=== PATIENT | female | born 1965 | race Caucasian/White ===

== ENCOUNTER 2017-05-29 14:41 | Inpatient (IN) | payer BC ==
[2017-05-29 15:24] VITALS: BMI 30.9
--- NOTE | 2017-05-29 17:54 | CP.PCM.HP ---
History of Present Illness - History of Present Illness History of Present Illness: 51 yo female with history of HTN and HDL, non-compliant with medications for 6 months, woke up around 1am on 05/24/17. She was about to go to the bathroom but her left leg gave in and she fell down. She went back to bed and felt mild headache accompanied with dizziness. She also noticed numbness and weakness of her left arm. She attempted getting up from bed again and fell down a second time because of weakness on her left leg. When day broke, she bought herself a cane to assist her in ambulation. Later in the day she decided to [place] [facility] [place]. MRI was done which showed acute infarct in the right mar radiata and basal ganglia. She was admitted and managed as Acute CVA. Present on Admission - Present on Admission Any Indicators Present on Admission: No History of DVT/PE: No History of Uncontrolled Diabetes: No Urinary Catheter: No Decubitus Ulcer Present: No Review of Systems - Review of Systems All systems: reviewed and no additional remarkable complaints except (aside from those mentioned above, 12 point system review were negative by me) Past Patient History - Infectious Disease Hx of Infectious Diseases: None - Tetanus Immunizations Tetanus Immunization: Unknown - Past Medical History & Family History Past Medical History?: Yes Pertinent Family History: father has history of HTN - Past Social History Smoking Status: Never Smoked Alcohol: None Drugs: Denies Home Situation {Lives}: Alone - CARDIAC Hx Hypercholesterolemia: Yes Hx Hypertension: Yes - PULMONARY Hx Respiratory Disorders: No - NEUROLOGICAL Hx Neurological Disorder: No - HEENT Hx HEENT Problems: No - RENAL Hx Chronic Kidney Disease: No - ENDOCRINE/METABOLIC Hx Endocrine Disorders: No - HEMATOLOGICAL/ONCOLOGICAL Hx Anemia: Yes - INTEGUMENTARY Hx Dermatological Problems: No - MUSCULOSKELETAL/RHEUMATOLOGICAL Hx Musculoskeletal Disorders: No - GASTROINTESTINAL Hx Gastrointestinal Disorders: No - GENITOURINARY/GYNECOLOGICAL Hx Genitourinary Disorders: No - PSYCHIATRIC Hx Psychophysiologic Disorder: No - SURGICAL HISTORY Hx Surgeries: No - ANESTHESIA Hx Anesthesia: No Meds Allergies/Adverse Reactions: Allergies Allergy/AdvReac Type Severity Reaction Status Date / Time No Known Allergies Allergy Verified 05/29/17 17:03 Physical Exam - Constitutional Appears: No Acute Distress, Other (obese) - Head Exam Head Exam: ATRAUMATIC - Eye Exam Eye Exam: PERRL. absent: Scleral icterus - ENT Exam ENT Exam: Mucous Membranes Moist - Neck Exam Neck exam: Negative for: Meningismus - Respiratory Exam Respiratory Exam: absent: Rhonchi, Wheezes, Respiratory Distress - Cardiovascular Exam Cardiovascular Exam: REGULAR RHYTHM, +S1, +S2 - GI/Abdominal Exam GI & Abdominal Exam: Soft. absent: Tenderness - Rectal Exam Rectal Exam: Deferred - Extremities Exam Extremities exam: Negative for: calf tenderness, pedal edema - Neurological Exam Neurological exam: Alert, Oriented x3 - Psychiatric Exam Psychiatric exam: Normal Affect - Skin Skin Exam: Dry, Intact Assessment & Plan - Assessment and Plan (Free Text) Assessment: 51 yo female with history of HTN and HDL, non-compliant with medications for 6 months, woke up around 1am on 05/24/17 with left sided weakness causing her to fall twice. [place] [facility] [place] was found to have acute CVA when MRI showed acute infarct in the right mar radiata and basal ganglia. 1. Acute CVA admit to Acute Rehab for continuation of PT/OT physiatry consult with Dr Freeman continue ASA, statin and BP management fall precaution 2. HTN BP stable continue HCTZ 12.5 mg PO daily 3. HLD Atorvastatin 40mg PO HS
[2017-05-29] MEDS ORDERED: Influenza Vaccine 18yr & older 0.5 ML/45 MCG SYR IM ONE (18:38)
[2017-05-29] MEDS ORDERED: Pneumococcal 23-Valent Vaccine IM ONE (18:38)
[2017-05-30 07:44] LABS: HEMOGLOBIN 12.1 g/dL (12.0-16.0); MEAN CELL VOLUME 82.2 fl (81.0-99.0); MEAN CORPUSCULAR HGB CONC 32.8 g/dL (33.0-37.0); RBC 4.5 Mil/uL (3.80-5.20); RED CELL DISTRIBUTION WIDTH 16.4 % (11.5-14.5); WHITE BLOOD COUNT 4.1 K/uL (4.8-10.8)
[2017-05-30 07:46] LABS: ALB/GLOB RATIO 1.1 (1.0-2.1); ALBUMIN 3.7 g/dL (3.5-5.0); ALT/SGPT 80 U/L (9-52); AST/SGOT 40 U/L (14-36); BLOOD UREA NITROGEN 18 mg/dl (7-17); CALCIUM 9.2 mg/dL (8.4-10.2); GFR AFRICAN-AMERICAN > 60; GFR NON-AFRICAN AMERICAN > 60
[2017-05-30] MEDS: NIFEdipine 60 mg ER Tab PO SCH (08:41)
[2017-05-30] MEDS: Enoxaparin 40 mg Syringe SC SCH (12:24)
--- NOTE | 2017-05-30 13:38 | CP.PCM.PN ---
Subjective - Date & Time of Evaluation Date of Evaluation: 05/30/17 Time of Evaluation: 11:40 - Subjective Subjective: paatinet with left sided weakness Objective - Vital Signs/Intake and Output Vital Signs (last 24 hours): Temp Pulse Resp BP Pulse Ox 97.7 F 87 18 130/92 H 98 05/30/17 08:03 05/30/17 11:08 05/30/17 08:03 05/30/17 08:42 05/30/17 11:08 - Medications Medications: Current Medications Aspirin (Ecotrin) 81 mg PO DAILY [facility] Last Admin: 05/30/17 08:41 Dose: 81 mg Atorvastatin Calcium (Lipitor) 40 mg PO DAILY [facility] Last Admin: 05/30/17 08:41 Dose: 40 mg Enoxaparin Sodium (Lovenox) 40 mg SC DAILY [facility] PRN Reason: Protocol Last Admin: 05/30/17 12:24 Dose: 40 mg Hydrochlorothiazide (Microzide) 12.5 mg PO DAILY [facility] Last Admin: 05/30/17 08:41 Dose: 12.5 mg Lisinopril (Zestril) 5 mg PO DAILY [facility] Last Admin: 05/30/17 08:42 Dose: 5 mg Nifedipine (Procardia Xl) 60 mg PO DAILY [facility] Last Admin: 05/30/17 08:41 Dose: 60 mg Pantoprazole Sodium (Protonix Ec Tab) 40 mg PO DAILY [facility] - Labs Labs: 05/30/17 06:15 05/30/17 06:15 - Head Exam Head Exam: ATRAUMATIC, NORMAL INSPECTION, NORMOCEPHALIC - Eye Exam Eye Exam: EOMI, Normal appearance, PERRL Pupil Exam: NORMAL ACCOMODATION - ENT Exam ENT Exam: Mucous Membranes Moist, Normal Exam - Neck Exam Neck Exam: Normal Inspection - Respiratory Exam Respiratory Exam: NORMAL BREATHING PATTERN - Cardiovascular Exam Cardiovascular Exam: REGULAR RHYTHM - GI/Abdominal Exam GI & Abdominal Exam: Soft, Normal Bowel Sounds - Rectal Exam Rectal Exam: NORMAL INSPECTION - Exam External exam: NORMAL EXTERNAL EXAM - Extremities Exam Extremities Exam: Full ROM, Normal Capillary Refill - Back Exam Back Exam: NORMAL INSPECTION - Neurological Exam Neurological Exam: Alert, Awake Neuro motor strength exam: Left Upper Extremity: 2/1, Right Upper Extremity: 3, Left Lower Extremity: 2/1, Right Lower Extremity: 3 - Psychiatric Exam Psychiatric exam: Normal Affect, Normal Mood - Skin Skin Exam: Dry, Intact Assessment and Plan (1) CVA (cerebral vascular accident) Assessment & Plan: plan for pt, ot, rec and speech therapy Status: Acute
--- NOTE | 2017-05-30 13:39 | PCM.OPOC ---
Physiatry Overall Plan of Care - Overall Plan of Care Estimated Length of Stay in Weeks: 3 Rehab Impairment: Mobility, Gait, Cognition, Balance, Coordination Etiologic Diagnosis: Cerebrovascular Accident - Anticipated Interventions Physical Therapy:: Yes Occupational Therapy:: Yes Speech Therapy:: Yes Recreational Therapy:: Yes - Therapy Goals Bed Mobility: Independent Ambulation: Independent Functional Positional Changes:: Independent - Functional Outcomes Functional Outcomes: fair - Discharge Plan Identification of Barriers to Discharge: Home Situation Discharge Destination: Home
--- NOTE | 2017-05-30 13:41 | CP.PCM.CON ---
History of Present Illness - History of Present Illness History of Present Illness: 51 yearl old freindly female admiited to acute rehab with diagnosis of Cva Review of Systems - Musculoskeletal Musculoskeletal: Abnormal Gait, Limited Range of Motion - Neurological Neurological: Abnormal Gait, Weakness Past Patient History - Infectious Disease Hx of Infectious Diseases: None - Tetanus Immunizations Tetanus Immunization: Unknown - Past Medical History & Family History Past Medical History?: Yes - Past Social History Smoking Status: Never Smoked Alcohol: None Drugs: Denies Home Situation {Lives}: Alone - CARDIAC Hx Hypercholesterolemia: Yes Hx Hypertension: Yes - PULMONARY Hx Respiratory Disorders: No - NEUROLOGICAL Hx Neurological Disorder: No - HEENT Hx HEENT Problems: No - RENAL Hx Chronic Kidney Disease: No - ENDOCRINE/METABOLIC Hx Endocrine Disorders: No - HEMATOLOGICAL/ONCOLOGICAL Hx AIDS: No Hx Human Immunodeficiency Virus (HIV): No - INTEGUMENTARY Hx Dermatological Problems: No - MUSCULOSKELETAL/RHEUMATOLOGICAL Hx Musculoskeletal Disorders: No - GASTROINTESTINAL Hx Gastrointestinal Disorders: No - GENITOURINARY/GYNECOLOGICAL Hx Genitourinary Disorders: No - PSYCHIATRIC Hx Psychophysiologic Disorder: No - SURGICAL HISTORY Hx Surgeries: No - ANESTHESIA Hx Anesthesia: No Meds Allergies/Adverse Reactions: Allergies Allergy/AdvReac Type Severity Reaction Status Date / Time No Known Allergies Allergy Verified 05/29/17 17:03 - Medications Medications: Current Medications Aspirin (Ecotrin) 81 mg PO DAILY [facility] Last Admin: 05/30/17 08:41 Dose: 81 mg Atorvastatin Calcium (Lipitor) 40 mg PO DAILY [facility] Last Admin: 05/30/17 08:41 Dose: 40 mg Enoxaparin Sodium (Lovenox) 40 mg SC DAILY [facility] PRN Reason: Protocol Last Admin: 05/30/17 12:24 Dose: 40 mg Hydrochlorothiazide (Microzide) 12.5 mg PO DAILY [facility] Last Admin: 05/30/17 08:41 Dose: 12.5 mg Lisinopril (Zestril) 5 mg PO DAILY [facility] Last Admin: 05/30/17 08:42 Dose: 5 mg Nifedipine (Procardia Xl) 60 mg PO DAILY [facility] Last Admin: 05/30/17 08:41 Dose: 60 mg Pantoprazole Sodium (Protonix Ec Tab) 40 mg PO DAILY [facility] Physical Exam - Head Exam Head Exam: ATRAUMATIC, NORMAL INSPECTION, NORMOCEPHALIC - Eye Exam Eye Exam: EOMI, Normal appearance, PERRL - ENT Exam ENT Exam: Mucous Membranes Moist, Normal Exam - Neck Exam Neck exam: Positive for: Normal Inspection - Respiratory Exam Respiratory Exam: NORMAL BREATHING PATTERN - Cardiovascular Exam Cardiovascular Exam: REGULAR RHYTHM - GI/Abdominal Exam GI & Abdominal Exam: Normal Bowel Sounds - Rectal Exam Rectal Exam: NORMAL INSPECTION - Exam External exam: NORMAL EXTERNAL EXAM - Extremities Exam Extremities exam: Positive for: normal inspection - Back Exam Back exam: NORMAL INSPECTION - Neurological Exam Neurological exam: Alert, CN II-XII Intact Additional comments: left sided weakness - Psychiatric Exam Psychiatric exam: Normal Affect, Normal Mood - Skin Skin Exam: Dry, Intact Results - Vital Signs Recent Vital Signs: Last Vital Signs Temp 97.7 F 05/30/17 08:03 Pulse 87 05/30/17 11:08 Resp 18 05/30/17 08:03 BP 130/92 H 05/30/17 08:42 Pulse Ox 98 05/30/17 11:08 - Labs Result Diagrams: 05/30/17 06:15 05/30/17 06:15 Labs: Laboratory Results - last 24 hr 05/30/17 05/30/17 06:15 06:15 WBC 4.1 L RBC 4.50 Hgb 12.1 Hct 36.9 MCV 82.2 MCH 27.0 MCHC 32.8 L RDW 16.4 H Plt Count 190 Sodium 138 Potassium 3.7 Chloride 100 Carbon Dioxide 28 Anion Gap 14 BUN 18 H Creatinine 0.9 Est GFR ( Amer) > 60 Est GFR (Non-Af Amer) > 60 Random Glucose 113 H Calcium 9.2 Total Bilirubin 0.7 AST 40 H ALT 80 H Alkaline Phosphatase 40 Total Protein 7.0 Albumin 3.7 Globulin 3.3 Albumin/Globulin Ratio 1.1 Assessment & Plan (1) CVA (cerebral vascular accident) Assessment and Plan: plan for physical, occupational, rec and speech therapy for range of motion, strenghteninging, transfers and gait training goal for Mod I Status: Acute
--- NOTE | 2017-05-30 17:47 | CP.PCM.PN ---
Subjective - Date & Time of Evaluation Date of Evaluation: 05/30/17 Time of Evaluation: 11:00 - Subjective Subjective: Patient was seen and examined at bedside. Reports no new complaints. She is excited to start physical therapy. C/o constipation. Objective - Vital Signs/Intake and Output Vital Signs (last 24 hours): Temp Pulse Resp BP Pulse Ox 97.7 F 87 18 130/92 H 98 05/30/17 08:03 05/30/17 11:08 05/30/17 08:03 05/30/17 08:42 05/30/17 11:08 - Medications Medications: Current Medications Aspirin (Ecotrin) 81 mg PO DAILY [facility] Last Admin: 05/30/17 08:41 Dose: 81 mg Atorvastatin Calcium (Lipitor) 40 mg PO DAILY [facility] Last Admin: 05/30/17 08:41 Dose: 40 mg Docusate Sodium (Colace) 100 mg PO BID [facility] Last Admin: 05/30/17 17:31 Dose: 100 mg Enoxaparin Sodium (Lovenox) 40 mg SC DAILY [facility] PRN Reason: Protocol Last Admin: 05/30/17 12:24 Dose: 40 mg Hydrochlorothiazide (Microzide) 12.5 mg PO DAILY [facility] Last Admin: 05/30/17 08:41 Dose: 12.5 mg Lisinopril (Zestril) 5 mg PO DAILY [facility] Last Admin: 05/30/17 08:42 Dose: 5 mg Nifedipine (Procardia Xl) 60 mg PO DAILY [facility] Last Admin: 05/30/17 08:41 Dose: 60 mg Pantoprazole Sodium (Protonix Ec Tab) 40 mg PO DAILY [facility] - Labs Labs: 05/30/17 06:15 05/30/17 06:15 - Additional Findings Additional findings: Physical exam: Constitutional- cooperative, awake, alert Head- NCAT, PERRL Eye- PERRL, EOMI ENT- normal exam, MMM. Neck- normal inspection, supple, no JVD Respiratory- CTAB, no wheezes rales rhonchi Cardiovascular- RRR, +S1, +S2 no MRG GI/Abdominal- normal bowel sounds, soft, no mass, no hsm Skin- warm, dry Extremities Exam- normal capillary refill, normal inspection Neurological Exam- alert, awake, oriented Psych- normal mood, normal affect Assessment and Plan - Assessment and Plan (Free Text) Plan: 51 yo female with history of HTN and HDL, non-compliant with medications for 6 months, woke up around 1am on 05/24/17. She was about to go to the bathroom but her left leg gave in and she fell down. She went back to bed and felt mild headache accompanied with dizziness. She also noticed numbness and weakness of her left arm. She attempted getting up from bed again and fell down a second time because of weakness on her left leg. The next day, she bought herself a cane to assist her in ambulation. Later in the day she decided to check in to [facility] [place] when her condition did not improve. MRI was done which showed acute infarct in the right mar radiata and basal ganglia. She was admitted and managed as Acute CVA. She reports during her stay there she was told she had low potassium and low magnesium and recieved repletion of these intravenously. She was subsequently admitted to [facility] acute rehab on 05/29/2016 for further rehabillitation 1. Acute CVA admit to Acute Rehab for continuation of PT/OT physiatry consult with Dr Freeman continue ASA, statin and BP management fall precaution Herat healthy diet 2. HTN BP stable continue HCTZ 12.5 mg PO daily Nifedipine ER 60 mg po daily Lisinopril 5 mg po daily 3. HLD Atorvastatin 40mg PO HS 4. Constipation - Colace 100 mg po BID added 5. GERD prophylaxis Protonix 40 mg po daily 6. DVT prophylaxis Lovenox
[2017-05-31] MEDS: Enoxaparin 40 mg Syringe SC SCH (08:34)
[2017-05-31] MEDS: Pantoprazole 40 mg EC Tab PO SCH (08:34)
[2017-05-31] MEDS: NIFEdipine 60 mg ER Tab PO SCH (08:35)
[2017-06-01] MEDS: Cholecalciferol 1,000 INTLU TAB PO SCH (08:35)
[2017-06-01] MEDS: NIFEdipine 60 mg ER Tab PO SCH (08:36)
[2017-06-01] MEDS: Pantoprazole 40 mg EC Tab PO SCH (08:36)
[2017-06-01] MEDS: Enoxaparin 40 mg Syringe SC SCH (08:37)
[2017-06-01] MEDS ORDERED: Pantoprazole 40 mg EC Tab PO ONE (10:48)
[2017-06-01] MEDS ORDERED: NIFEdipine 60 mg ER Tab PO ONE (10:48)
[2017-06-01] MEDS ORDERED: Cholecalciferol 1,000 INTLU TAB PO ONE (10:49)
[2017-06-02 06:08] LABS: HEMOGLOBIN 12.2 g/dL (12.0-16.0); MEAN CELL VOLUME 81.9 fl (81.0-99.0); MEAN CORPUSCULAR HEMOGLOBIN 26.6 pg (27.0-31.0); MEAN CORPUSCULAR HGB CONC 32.5 g/dL (33.0-37.0); RBC 4.57 Mil/uL (3.80-5.20); RED CELL DISTRIBUTION WIDTH 16.8 % (11.5-14.5); WHITE BLOOD COUNT 4.4 K/uL (4.8-10.8)
[2017-06-02 06:21] LABS: BLOOD UREA NITROGEN 19 mg/dl (7-17); CALCIUM 9.2 mg/dL (8.4-10.2); GFR AFRICAN-AMERICAN > 60; GFR NON-AFRICAN AMERICAN > 60
[2017-06-02] MEDS: Enoxaparin 40 mg Syringe SC SCH (08:34)
[2017-06-02] MEDS: NIFEdipine 60 mg ER Tab PO SCH (08:34)
[2017-06-02] MEDS: Pantoprazole 40 mg EC Tab PO SCH (08:34)
[2017-06-02] MEDS: Cholecalciferol 1,000 INTLU TAB PO SCH (08:35)
[2017-06-02] MEDS ORDERED: Pantoprazole 40 mg EC Tab PO ONE (10:48)
[2017-06-02] MEDS ORDERED: Cholecalciferol 1,000 INTLU TAB PO ONE (10:49)
--- NOTE | 2017-06-02 18:41 | CP.PCM.PN ---
Subjective - Date & Time of Evaluation Date of Evaluation: 06/02/17 Time of Evaluation: 15:45 - Subjective Subjective: Pt seen and examined. Complained of coughing and feeling of sticky phlegm in her throat. Denied SOB. Objective - Vital Signs/Intake and Output Vital Signs (last 24 hours): Temp Pulse Resp BP Pulse Ox 98.5 F 86 20 124/79 97 06/02/17 08:40 06/02/17 08:40 06/02/17 08:40 06/02/17 08:40 06/02/17 08:40 - Medications Medications: Current Medications Acetylcysteine (Acetylcysteine 20%) 2 ml INH RBID [facility] Aspirin (Ecotrin) 81 mg PO DAILY [facility] Last Admin: 06/02/17 08:34 Dose: 81 mg Atorvastatin Calcium (Lipitor) 40 mg PO DAILY@2100 [facility] Benzonatate (Tessalon Perles) 200 mg PO TID PRN PRN Reason: Cough Last Admin: 06/01/17 16:43 Dose: 200 mg Cholecalciferol (Vitamin D) 1,000 intlu PO DAILY [facility] Last Admin: 06/02/17 08:35 Dose: 1,000 intlu Docusate Sodium (Colace) 100 mg PO BID [facility] Last Admin: 06/02/17 17:26 Dose: 100 mg Enoxaparin Sodium (Lovenox) 40 mg SC DAILY [facility] PRN Reason: Protocol Last Admin: 06/02/17 08:34 Dose: 40 mg Hydrochlorothiazide (Microzide) 12.5 mg PO DAILY [facility] Last Admin: 06/02/17 08:34 Dose: 12.5 mg Loratadine (Claritin) 10 mg PO DAILY PRN PRN Reason: Allergy symptoms Last Admin: 06/02/17 08:36 Dose: 10 mg Nifedipine (Procardia Xl) 60 mg PO DAILY [facility] Last Admin: 06/02/17 08:34 Dose: 60 mg Pantoprazole Sodium (Protonix Ec Tab) 40 mg PO DAILY [facility] Last Admin: 06/02/17 08:34 Dose: 40 mg - Labs Labs: 06/02/17 05:35 06/02/17 05:35 - Constitutional Appears: No Acute Distress - Head Exam Head Exam: ATRAUMATIC - Eye Exam Eye Exam: absent: Scleral icterus - ENT Exam ENT Exam: Mucous Membranes Moist - Neck Exam Neck Exam: absent: Meningismus - Respiratory Exam Respiratory Exam: absent: Rhonchi, Wheezes, Respiratory Distress - Cardiovascular Exam Cardiovascular Exam: REGULAR RHYTHM, +S1, +S2 - GI/Abdominal Exam GI & Abdominal Exam: Soft. absent: Tenderness - Rectal Exam Rectal Exam: Deferred - Extremities Exam Extremities Exam: absent: Calf Tenderness - Neurological Exam Neurological Exam: Alert, Oriented x3 - Psychiatric Exam Psychiatric exam: Normal Affect - Skin Skin Exam: Dry, Intact Assessment and Plan - Assessment and Plan (Free Text) Assessment: 51 yo female with history of HTN and HDL, non-compliant with medications for 6 months, woke up around 1am on 05/24/17 with left sided weakness causing her to fall twice. She went in to [facility] [place] and was found to have acute CVA with MRI showing acute infarct in the right mar radiata and basal ganglia. 1. Acute CVA admit to Acute Rehab for continuation of PT/OT physiatry consult with Dr Freeman continue ASA, statin and BP management fall precaution 2. HTN BP stable continue HCTZ and Nifedipine ER DC Lisinopril because of persistent coughing 3. HLD Atorvastatin 40mg PO HS 4. Coughing probably secondary to post nasal drip Acetylcysteine via nebulizer BID Robitussin DM PO QID 5. DVT prophylaxis continue Lovenox
[2017-06-02] MEDS: Acetylcysteine 20% Inhal Soln (4ml) INH SCH (19:14)
[2017-06-02] MEDS: Albuterol-Ipratrop 3 mg / 0.5 (3 ml) UD INH PRN (19:14)
--- NOTE | 2017-06-02 19:45 | CP.PCM.PN ---
Subjective - Date & Time of Evaluation Date of Evaluation: 05/31/17 Time of Evaluation: 14:30 - Subjective Subjective: no acute complaints of pain Objective - Vital Signs/Intake and Output Vital Signs (last 24 hours): Temp Pulse Resp BP Pulse Ox 98.5 F 80 20 124/79 97 06/02/17 08:40 06/02/17 19:14 06/02/17 08:40 06/02/17 08:40 06/02/17 08:40 - Medications Medications: Current Medications Acetylcysteine (Acetylcysteine 20%) 2 ml INH RBID [facility] Last Admin: 06/02/17 19:14 Dose: 2 ml Albuterol/Ipratropium (Duoneb 3 Mg/0.5 Mg (3 Ml) Ud) 3 ml INH RBID PRN PRN Reason: Shortness of Breath Last Admin: 06/02/17 19:14 Dose: 3 ml Aspirin (Ecotrin) 81 mg PO DAILY [facility] Last Admin: 06/02/17 08:34 Dose: 81 mg Atorvastatin Calcium (Lipitor) 40 mg PO DAILY@2100 [facility] Benzonatate (Tessalon Perles) 200 mg PO TID PRN PRN Reason: Cough Last Admin: 06/01/17 16:43 Dose: 200 mg Cholecalciferol (Vitamin D) 1,000 intlu PO DAILY [facility] Last Admin: 06/02/17 08:35 Dose: 1,000 intlu Docusate Sodium (Colace) 100 mg PO BID [facility] Last Admin: 06/02/17 17:26 Dose: 100 mg Enoxaparin Sodium (Lovenox) 40 mg SC DAILY [facility] PRN Reason: Protocol Last Admin: 06/02/17 08:34 Dose: 40 mg Hydrochlorothiazide (Microzide) 12.5 mg PO DAILY [facility] Last Admin: 06/02/17 08:34 Dose: 12.5 mg Loratadine (Claritin) 10 mg PO DAILY PRN PRN Reason: Allergy symptoms Last Admin: 06/02/17 08:36 Dose: 10 mg Nifedipine (Procardia Xl) 60 mg PO DAILY [facility] Last Admin: 06/02/17 08:34 Dose: 60 mg Pantoprazole Sodium (Protonix Ec Tab) 40 mg PO DAILY [facility] Last Admin: 06/02/17 08:34 Dose: 40 mg - Labs Labs: 06/02/17 05:35 06/02/17 05:35 - Head Exam Head Exam: ATRAUMATIC, NORMAL INSPECTION, NORMOCEPHALIC - Eye Exam Eye Exam: EOMI, Normal appearance Pupil Exam: NORMAL ACCOMODATION, PERRL - ENT Exam ENT Exam: Mucous Membranes Moist, Normal Exam - Neck Exam Neck Exam: Normal Inspection - Respiratory Exam Respiratory Exam: Clear to Ausculation Bilateral - Cardiovascular Exam Cardiovascular Exam: REGULAR RHYTHM - GI/Abdominal Exam GI & Abdominal Exam: Soft, Normal Bowel Sounds - Rectal Exam Rectal Exam: NORMAL INSPECTION - Exam External exam: NORMAL EXTERNAL EXAM - Extremities Exam Extremities Exam: Normal Inspection - Back Exam Back Exam: NORMAL INSPECTION - Neurological Exam Neurological Exam: Alert, Awake Neuro motor strength exam: Left Upper Extremity: 4, Right Upper Extremity: 3, Left Lower Extremity: 4, Right Lower Extremity: 3 - Psychiatric Exam Psychiatric exam: Normal Affect, Normal Mood - Skin Skin Exam: Normal Color Assessment and Plan (1) CVA (cerebral vascular accident) Assessment & Plan: plan to continue with physical, occupational, rec , speech therapy for range of motion, strengthening transfers and gait training Status: Acute
[2017-06-03] MEDS: Enoxaparin 40 mg Syringe SC SCH (08:26)
[2017-06-03] MEDS: NIFEdipine 60 mg ER Tab PO SCH (08:28)
[2017-06-03] MEDS: Pantoprazole 40 mg EC Tab PO SCH (08:29)
[2017-06-03] MEDS: Cholecalciferol 1,000 INTLU TAB PO SCH (08:29)
[2017-06-03] MEDS: Acetylcysteine 20% Inhal Soln (4ml) INH SCH ×3 (08:38→19:13)
[2017-06-03] MEDS: Albuterol-Ipratrop 3 mg / 0.5 (3 ml) UD INH PRN ×2 (11:00→19:13)
--- NOTE | 2017-06-03 12:32 | CP.PCM.PN ---
Subjective - Date & Time of Evaluation Date of Evaluation: 06/03/17 Time of Evaluation: 10:30 - Subjective Subjective: patinet with less cough and congestion Objective - Vital Signs/Intake and Output Vital Signs (last 24 hours): Temp Pulse Resp BP Pulse Ox 98.2 F 99 H 97 H 149/84 97 06/03/17 08:52 06/03/17 10:15 06/03/17 10:15 06/03/17 08:52 06/03/17 08:52 - Medications Medications: Current Medications Acetylcysteine (Acetylcysteine 20%) 2 ml INH RBID [facility] Last Admin: 06/03/17 11:00 Dose: 2 ml Albuterol/Ipratropium (Duoneb 3 Mg/0.5 Mg (3 Ml) Ud) 3 ml INH RBID PRN PRN Reason: Shortness of Breath Last Admin: 06/03/17 11:00 Dose: 3 ml Aspirin (Ecotrin) 81 mg PO DAILY [facility] Last Admin: 06/03/17 08:29 Dose: 81 mg Atorvastatin Calcium (Lipitor) 40 mg PO DAILY@2100 [facility] Last Admin: 06/02/17 20:10 Dose: 40 mg Benzonatate (Tessalon Perles) 200 mg PO TID PRN PRN Reason: Cough Last Admin: 06/02/17 20:08 Dose: 200 mg Cholecalciferol (Vitamin D) 1,000 intlu PO DAILY [facility] Last Admin: 06/03/17 08:29 Dose: 1,000 intlu Docusate Sodium (Colace) 100 mg PO BID [facility] Last Admin: 06/03/17 08:27 Dose: 100 mg Enoxaparin Sodium (Lovenox) 40 mg SC DAILY [facility] PRN Reason: Protocol Last Admin: 06/03/17 08:26 Dose: 40 mg Hydrochlorothiazide (Microzide) 12.5 mg PO DAILY [facility] Last Admin: 06/03/17 08:29 Dose: 12.5 mg Loratadine (Claritin) 10 mg PO DAILY PRN PRN Reason: Allergy symptoms Last Admin: 06/03/17 08:31 Dose: 10 mg Nifedipine (Procardia Xl) 60 mg PO DAILY [facility] Last Admin: 06/03/17 08:28 Dose: 60 mg Pantoprazole Sodium (Protonix Ec Tab) 40 mg PO DAILY [facility] Last Admin: 06/03/17 08:29 Dose: 40 mg - Labs Labs: 06/02/17 05:35 06/02/17 05:35 - Head Exam Head Exam: ATRAUMATIC, NORMAL INSPECTION, NORMOCEPHALIC - Eye Exam Eye Exam: EOMI, Normal appearance, PERRL Pupil Exam: NORMAL ACCOMODATION - ENT Exam ENT Exam: Mucous Membranes Moist, Normal Exam - Neck Exam Neck Exam: Normal Inspection - Respiratory Exam Respiratory Exam: NORMAL BREATHING PATTERN - Cardiovascular Exam Cardiovascular Exam: REGULAR RHYTHM - GI/Abdominal Exam GI & Abdominal Exam: Soft, Normal Bowel Sounds - Rectal Exam Rectal Exam: NORMAL INSPECTION - Exam External exam: NORMAL EXTERNAL EXAM - Extremities Exam Extremities Exam: Full ROM, Normal Capillary Refill - Back Exam Back Exam: NORMAL INSPECTION - Neurological Exam Neurological Exam: Alert, Awake Neuro motor strength exam: Left Upper Extremity: 3, Right Upper Extremity: 4, Left Lower Extremity: 3, Right Lower Extremity: 4 - Psychiatric Exam Psychiatric exam: Normal Affect, Normal Mood - Skin Skin Exam: Dry, Intact Assessment and Plan (1) CVA (cerebral vascular accident) Assessment & Plan: plan for physical, occupational, rec therapy monitor congetion, nebulizer and cough Status: Acute
[2017-06-04] MEDS: Enoxaparin 40 mg Syringe SC SCH (08:39)
[2017-06-04] MEDS: NIFEdipine 60 mg ER Tab PO SCH (08:40)
[2017-06-04] MEDS: Cholecalciferol 1,000 INTLU TAB PO SCH (08:41)
[2017-06-04] MEDS: Pantoprazole 40 mg EC Tab PO SCH (08:41)
[2017-06-04] MEDS: Albuterol-Ipratrop 3 mg / 0.5 (3 ml) UD INH PRN ×2 (10:45→20:01)
[2017-06-04] MEDS: Acetylcysteine 20% Inhal Soln (4ml) INH SCH ×2 (10:46→20:01)
--- NOTE | 2017-06-04 11:58 | CP.PCM.PN ---
Subjective - Date & Time of Evaluation Date of Evaluation: 06/04/17 Time of Evaluation: 13:00 - Subjective Subjective: Patient seen and examined during PT. Participating with PT well.Strength to left side ted her body getting better. No acute issues overnight. With dry coughing spells and throat itchiness. Bp slightly elevated today and tachycardic Objective - Vital Signs/Intake and Output Vital Signs (last 24 hours): Temp Pulse Resp BP Pulse Ox 98.4 F 91 H 20 160/100 H 99 06/04/17 09:00 06/04/17 09:22 06/04/17 09:00 06/04/17 09:00 06/04/17 08:52 - Medications Medications: Current Medications Acetylcysteine (Acetylcysteine 20%) 2 ml INH RBID [facility] Last Admin: 06/04/17 10:46 Dose: 2 ml Albuterol/Ipratropium (Duoneb 3 Mg/0.5 Mg (3 Ml) Ud) 3 ml INH RBID PRN PRN Reason: Shortness of Breath Last Admin: 06/04/17 10:45 Dose: 3 ml Aspirin (Ecotrin) 81 mg PO DAILY [facility] Last Admin: 06/04/17 08:39 Dose: 81 mg Atorvastatin Calcium (Lipitor) 40 mg PO DAILY@2100 [facility] Last Admin: 06/03/17 20:09 Dose: 40 mg Benzonatate (Tessalon Perles) 200 mg PO TID PRN PRN Reason: Cough Last Admin: 06/03/17 20:08 Dose: 200 mg Cholecalciferol (Vitamin D) 1,000 intlu PO DAILY [facility] Last Admin: 06/04/17 08:41 Dose: 1,000 intlu Docusate Sodium (Colace) 100 mg PO BID [facility] Last Admin: 06/04/17 08:38 Dose: 100 mg Hydrochlorothiazide (Microzide) 12.5 mg PO DAILY [facility] Last Admin: 06/04/17 08:40 Dose: 12.5 mg Loratadine (Claritin) 10 mg PO DAILY PRN PRN Reason: Allergy symptoms Last Admin: 06/04/17 08:41 Dose: 10 mg Nifedipine (Procardia Xl) 60 mg PO DAILY [facility] Last Admin: 06/04/17 08:40 Dose: 60 mg Pantoprazole Sodium (Protonix Ec Tab) 40 mg PO DAILY [facility] Last Admin: 06/04/17 08:41 Dose: 40 mg - Labs Labs: 06/02/17 05:35 06/02/17 05:35 - Constitutional Appears: Non-toxic, No Acute Distress - Head Exam Head Exam: ATRAUMATIC, NORMAL INSPECTION, NORMOCEPHALIC - Eye Exam Eye Exam: EOMI, Normal appearance, PERRL Pupil Exam: NORMAL ACCOMODATION - ENT Exam ENT Exam: Mucous Membranes Moist, Normal Exam - Neck Exam Neck Exam: Full ROM, Normal Inspection - Respiratory Exam Respiratory Exam: Clear to Ausculation Bilateral, NORMAL BREATHING PATTERN. absent: Rales, Rhonchi, Wheezes - Cardiovascular Exam Cardiovascular Exam: Tachycardia, REGULAR RHYTHM, +S1, +S2. absent: JVD - GI/Abdominal Exam GI & Abdominal Exam: Soft, Normal Bowel Sounds. absent: Distended, Guarding, Tenderness, Rebound - Rectal Exam Rectal Exam: Deferred - Extremities Exam Extremities Exam: Full ROM, Normal Capillary Refill, Normal Inspection. absent : Pedal Edema - Back Exam Back Exam: NORMAL INSPECTION - Neurological Exam Neurological Exam: Alert, Awake, CN II-XII Intact, Oriented x3 Additional comments: left side weakness - Psychiatric Exam Psychiatric exam: Normal Affect, Normal Mood - Skin Skin Exam: Dry, Intact, Normal Color, Warm Assessment and Plan - Assessment and Plan (Free Text) Assessment: 51 yo female with history of HTN and HDL, non-compliant with medications for 6 months, woke up around 1am on 05/24/17 with left sided weakness causing her to fall twice. She went in to [facility] and was found to have acute CVA with MRI showing acute infarct in the right mar radiata and basal ganglia. At prtesent in acute rehab , participating with Pt and strength improving. 1. Acute CVA continue PT/OT physiatry consult with Dr Freeman appreciated continue ASA, statin and BP management fall precaution 2. HTN BP elevted today after lisinopril has been discontinued last couple of days Lisinopril discontinued due to cough continue HCTZ and Nifedipine ER Start Metoprolol 3. HLD Atorvastatin 40mg PO HS 4. Coughing probably secondary to post nasal drip vs ACEI side effect discontinued lisinopril ( gives similar history in the past ) Acetylcysteine via nebulizer BID Robitussin DM PO QID start phenergan with codeine 5. DVT prophylaxis continue Lovenox
--- NOTE | 2017-06-04 12:12 | PSY.TMCNF ---
Nursing - Vital Signs Vital Signs (Last 8 hours): Vital Signs 06/04/17 06/04/17 06/04/17 08:40 08:52 09:00 Temperature 98.4 F 98.4 F Pulse Rate 99 H 95 H 91 H Respiratory 20 20 Rate Blood Pressure 160/90 H 160/100 H 160/100 H O2 Sat by Pulse 99 Oximetry 06/04/17 09:22 Temperature Pulse Rate 91 H Respiratory Rate Blood Pressure O2 Sat by Pulse Oximetry Pain: 0 - Precautions: Precautions: Fall Prevention - Medications/Other Issues Comment: Coughing - Consults Comment: Dr. Freeman - Toileting Toileting: Supervision - Bladder Management Bladder Pattern: Normal Voiding Method: Toilet Bladder Management: Supervision Frequency of Accidents: 0 - Bowel Management Bowel Pattern: Normal Bowel Management: Supervision - Transfers Transfers: Contact Guard - ADL's ADL's: Minimal Assistance - Pain Management Comments: Denies pain - Patient/Family Teaching Comments: Post CVA care, safety - Goals/Time Frame Comments: Per interdisciplinary team. Physical Therapy - Bed Mobility Bed Mobility: Modified Independent, Supervision - Transfers Sit to Stand: Supervision, Verbal Cues - Ambulation Level of Assistance: Supervision, Verbal Cues, Contact Guard Distance (ft.): 100 Assistive Devices: Single point cane, Rolling Walker - Stair Negotiation Stairs: Level of Assistance: Supervision, Verbal Cues, Contact Guard Stairs: Assistive Devices: Left Handrail, Right Handrail - Standing Balance Static Stand: Supervision Dynamic Stand: Supervision, Contact Guard Assist - Pain Pain (assessed during therapy session): 0 Comment: pt denies pain. -patient has coughing spells during therapy session - Insight/Carryover Insight/Carryover: Good - Patient/Family Education Comment: continued CVA education and energy conservation strategies - Assessment/Plan Assessment: Pt is agreeable to participate in recreation therapy sessions. Pt is oriented to higher cognitive level tasks and encouraged to complete jigsaw puzzle tasks to improve fine motor skills and control in both L and R hands. Pt presents with impulsivity at times to complete tasks and requires verbal cues to not james throughout tasks. Pt demonstrates increase direction following, arousal level, and is encouraged to utilize both hands throughout session. Pt is motivated to participate in tasks and will continue to benefit from participating in recreation therapy sessions on unit. - Goals Timeframe: 2 weeks Goals: MOD I ADLS, transfers , mobility, IADLS. Improve activity tolerance to 20 mins during ADL - Provider Therapist: Denise Carter, PT< DPT License Number: [id number] Occupational Therapy - Arousal/Attention/Orientation Patient Orientation: Person, Place, Time, Appropriate to Age, Appropriate to Situation - ADL/IADL Self Feeding: Set-up Help Grooming: Set-up Help Bathing-Upper Extremity: Supervision, Set-up Help Bathing-Lower Extremity: Contact Guard Dressing-Upper Extremity: Set-up Help Dressing-Lower Extremity: Contact Guard Homemaking: Maximum Assistance Comment: Patient uses RW for transfers and mobility. 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 -patient has coughing spells during therapy session - Insight/Carryover Insight/Carryover: Good - Patient/Family Education Comment: continued CVA education and energy conservation strategies - Assessment/Plan Assessment: Pt is agreeable to participate in recreation therapy sessions. Pt is oriented to higher cognitive level tasks and encouraged to complete jigsaw puzzle tasks to improve fine motor skills and control in both L and R hands. Pt presents with impulsivity at times to complete tasks and requires verbal cues to not james throughout tasks. Pt demonstrates increase direction following, arousal level, and is encouraged to utilize both hands throughout session. Pt is motivated to participate in tasks and will continue to benefit from participating in recreation therapy sessions on unit. - Goals Timeframe: 2 weeks Goals: MOD I ADLS, transfers , mobility, IADLS. Improve activity tolerance to 20 mins during ADL - Provider Therapist: NICOLE Moran/[facility] - Plan Assessment: Pt is agreeable to participate in recreation therapy sessions. Pt is oriented to higher cognitive level tasks and encouraged to complete jigsaw puzzle tasks to improve fine motor skills and control in both L and R hands. Pt presents with impulsivity at times to complete tasks and requires verbal cues to not james throughout tasks. Pt demonstrates increase direction following, arousal level, and is encouraged to utilize both hands throughout session. Pt is motivated to participate in tasks and will continue to benefit from participating in recreation therapy sessions on unit. Recreational Therapy - Participation Participation: Participates in Individual and/or Group Sessions, Monitors His/ Her Own Leisure Time - Attendance Attendance: Daily - Activities Leisure Activities: Cards and Games - Socialization Level of Socialization: Initiates/interacts freely with care givers and peer - Diversional Time Diversional Time: provided with jigsaw puzzle, word searches - Assessment Assessment/Plan: Pt is agreeable to participate in recreation therapy sessions. Pt is oriented to higher cognitive level tasks and encouraged to complete jigsaw puzzle tasks to improve fine motor skills and control in both L and R hands. Pt presents with impulsivity at times to complete tasks and requires verbal cues to not james throughout tasks. Pt demonstrates increase direction following, arousal level, and is encouraged to utilize both hands throughout session. Pt is motivated to participate in tasks and will continue to benefit from participating in recreation therapy sessions on unit. Problems Currently Limiting Participation: decrease leisure awareness level, L side weakness Goals and Time Frame: Pt will be encouraged to participate in 1:1 and group recreation therapy sessions 3-5x week to improve leisure awareness level, direction following, and attention to task. - Provider Therapist: Nicol Clark, [employer]PRESENTATIVE #[id number] Nutrition - Current Diet Current Diet/ Supplement/ Feedings: 2 gram Na low fat/low cholesterol - Appetite Percent Meal Consumed: 75-100% - Comments Comments: Post CVA care, safety - Assessment/Goals/Time Frame Assessment/Goals/Time Frame: Coughing - Provider Provider: Jessenia Eric RD Case Management - Discharge Plan Discharge Plan: Home with significant other/family Rehabilitation Plan - Treatment Plan Treatment Plan: Physical Therapy, Occupational Therapy, Dietary, Patient/Family Education - Recommendation Recommendation: Physical Therapy, Occupational Therapy, Dietary, Patient/Family Education - Discharge Plan Discharge to: Home (31)
--- NOTE | 2017-06-04 12:38 | CP.PCM.PN ---
Subjective - Date & Time of Evaluation Date of Evaluation: 06/04/17 Time of Evaluation: 11:00 - Subjective Subjective: patinet with less congestion Objective - Vital Signs/Intake and Output Vital Signs (last 24 hours): Temp Pulse Resp BP Pulse Ox 98.4 F 91 H 20 160/100 H 99 06/04/17 09:00 06/04/17 09:22 06/04/17 09:00 06/04/17 09:00 06/04/17 08:52 - Medications Medications: Current Medications Acetylcysteine (Acetylcysteine 20%) 2 ml INH RBID [facility] Last Admin: 06/04/17 10:46 Dose: 2 ml Albuterol/Ipratropium (Duoneb 3 Mg/0.5 Mg (3 Ml) Ud) 3 ml INH RBID PRN PRN Reason: Shortness of Breath Last Admin: 06/04/17 10:45 Dose: 3 ml Aspirin (Ecotrin) 81 mg PO DAILY [facility] Last Admin: 06/04/17 08:39 Dose: 81 mg Atorvastatin Calcium (Lipitor) 40 mg PO DAILY@2100 [facility] Last Admin: 06/03/17 20:09 Dose: 40 mg Benzonatate (Tessalon Perles) 200 mg PO TID PRN PRN Reason: Cough Last Admin: 06/03/17 20:08 Dose: 200 mg Cholecalciferol (Vitamin D) 1,000 intlu PO DAILY [facility] Last Admin: 06/04/17 08:41 Dose: 1,000 intlu Docusate Sodium (Colace) 100 mg PO BID [facility] Last Admin: 06/04/17 08:38 Dose: 100 mg Hydrochlorothiazide (Microzide) 12.5 mg PO DAILY [facility] Last Admin: 06/04/17 08:40 Dose: 12.5 mg Loratadine (Claritin) 10 mg PO DAILY PRN PRN Reason: Allergy symptoms Last Admin: 06/04/17 08:41 Dose: 10 mg Nifedipine (Procardia Xl) 60 mg PO DAILY [facility] Last Admin: 06/04/17 08:40 Dose: 60 mg Pantoprazole Sodium (Protonix Ec Tab) 40 mg PO DAILY [facility] Last Admin: 06/04/17 08:41 Dose: 40 mg - Labs Labs: 06/02/17 05:35 06/02/17 05:35 - Head Exam Head Exam: ATRAUMATIC, NORMAL INSPECTION, NORMOCEPHALIC - Eye Exam Eye Exam: EOMI, Normal appearance, PERRL Pupil Exam: NORMAL ACCOMODATION - ENT Exam ENT Exam: Mucous Membranes Moist, Normal Exam - Neck Exam Neck Exam: Full ROM, Normal Inspection - Respiratory Exam Respiratory Exam: NORMAL BREATHING PATTERN - Cardiovascular Exam Cardiovascular Exam: REGULAR RHYTHM - GI/Abdominal Exam GI & Abdominal Exam: Normal Bowel Sounds - Rectal Exam Rectal Exam: NORMAL INSPECTION - Exam External exam: NORMAL EXTERNAL EXAM - Extremities Exam Extremities Exam: Full ROM, Normal Capillary Refill, Normal Inspection - Back Exam Back Exam: NORMAL INSPECTION - Neurological Exam Neurological Exam: Alert Neuro motor strength exam: Left Upper Extremity: 3, Right Upper Extremity: 4, Left Lower Extremity: 3, Right Lower Extremity: 4 - Psychiatric Exam Psychiatric exam: Normal Affect, Normal Mood - Skin Skin Exam: Dry, Intact Assessment and Plan (1) CVA (cerebral vascular accident) Assessment & Plan: plan fo rpt, ot and rec therapy team conference Dc 31 Status: Acute
[2017-06-04] MEDS: Promethazine/Cod 6.25mg-10mg/5ml Syr UD PO PRN (21:03)
[2017-06-05 06:33] LABS: HEMOGLOBIN 12.5 g/dL (12.0-16.0); MEAN CELL VOLUME 81.5 fl (81.0-99.0); MEAN CORPUSCULAR HEMOGLOBIN 27.1 pg (27.0-31.0); MEAN CORPUSCULAR HGB CONC 33.3 g/dL (33.0-37.0); RBC 4.6 Mil/uL (3.80-5.20); RED CELL DISTRIBUTION WIDTH 16.6 % (11.5-14.5); WHITE BLOOD COUNT 5.3 K/uL (4.8-10.8)
[2017-06-05 06:56] LABS: BLOOD UREA NITROGEN 19 mg/dl (7-17); CALCIUM 9.6 mg/dL (8.4-10.2); GFR AFRICAN-AMERICAN > 60; GFR NON-AFRICAN AMERICAN > 60
[2017-06-05] MEDS: Pantoprazole 40 mg EC Tab PO SCH (08:28)
[2017-06-05] MEDS: NIFEdipine 60 mg ER Tab PO SCH (08:28)
[2017-06-05] MEDS: Cholecalciferol 1,000 INTLU TAB PO SCH (08:29)
[2017-06-05] MEDS: Enoxaparin 40 mg Syringe SC SCH (08:35)
[2017-06-05] MEDS: Albuterol-Ipratrop 3 mg / 0.5 (3 ml) UD INH PRN ×2 (08:35→19:47)
[2017-06-05] MEDS: Acetylcysteine 20% Inhal Soln (4ml) INH SCH ×2 (08:35→19:47)
[2017-06-05] MEDS: Promethazine/Cod 6.25mg-10mg/5ml Syr UD PO PRN (20:39)
[2017-06-06] MEDS: Enoxaparin 40 mg Syringe SC SCH (08:07)
[2017-06-06] MEDS: Pantoprazole 40 mg EC Tab PO SCH (08:08)
[2017-06-06] MEDS: NIFEdipine 60 mg ER Tab PO SCH (08:09)
[2017-06-06] MEDS: Cholecalciferol 1,000 INTLU TAB PO SCH (08:09)
[2017-06-06] MEDS: Acetylcysteine 20% Inhal Soln (4ml) INH SCH ×2 (08:51→19:21)
[2017-06-06] MEDS: Albuterol-Ipratrop 3 mg / 0.5 (3 ml) UD INH PRN ×2 (08:51→19:21)
--- NOTE | 2017-06-06 12:48 | CP.PCM.PN ---
Subjective - Date & Time of Evaluation Date of Evaluation: 06/06/17 Time of Evaluation: 12:15 - Subjective Subjective: feels stronger, better with PT denies CP no SOB cough resolved no abd pain Objective - Vital Signs/Intake and Output Vital Signs (last 24 hours): Temp Pulse Resp BP Pulse Ox 98.1 F 86 20 142/86 99 06/06/17 09:04 06/06/17 09:04 06/06/17 09:04 06/06/17 09:04 06/06/17 09:04 - Medications Medications: Current Medications Acetylcysteine (Acetylcysteine 20%) 2 ml INH RBID [facility] Last Admin: 06/06/17 08:51 Dose: 2 ml Albuterol/Ipratropium (Duoneb 3 Mg/0.5 Mg (3 Ml) Ud) 3 ml INH RBID PRN PRN Reason: Shortness of Breath Last Admin: 06/06/17 08:51 Dose: 3 ml Aspirin (Ecotrin) 81 mg PO DAILY [facility] Last Admin: 06/06/17 08:07 Dose: 81 mg Atorvastatin Calcium (Lipitor) 40 mg PO DAILY@2100 [facility] Last Admin: 06/05/17 20:34 Dose: 40 mg Benzonatate (Tessalon Perles) 200 mg PO TID PRN PRN Reason: Cough Last Admin: 06/03/17 20:08 Dose: 200 mg Cholecalciferol (Vitamin D) 1,000 intlu PO DAILY [facility] Last Admin: 06/06/17 08:09 Dose: 1,000 intlu Docusate Sodium (Colace) 100 mg PO BID [facility] Last Admin: 06/06/17 08:08 Dose: 100 mg Enoxaparin Sodium (Lovenox) 40 mg SC DAILY [facility] PRN Reason: Protocol Last Admin: 06/06/17 08:07 Dose: 40 mg Hydrochlorothiazide (Microzide) 12.5 mg PO DAILY [facility] Last Admin: 06/06/17 08:09 Dose: 12.5 mg Loratadine (Claritin) 10 mg PO DAILY PRN PRN Reason: Allergy symptoms Last Admin: 06/04/17 08:41 Dose: 10 mg Metoprolol Tartrate (Lopressor) 12.5 mg PO Q12 [facility] Last Admin: 06/06/17 08:07 Dose: 12.5 mg Nifedipine (Procardia Xl) 60 mg PO DAILY [facility] Last Admin: 06/06/17 08:09 Dose: 60 mg Pantoprazole Sodium (Protonix Ec Tab) 40 mg PO DAILY [facility] Last Admin: 06/06/17 08:08 Dose: 40 mg Promethazine HCl/Codeine (Phenergan/Codeine Oral Syrup) 10 ml PO Q6 PRN PRN Reason: Cough Last Admin: 06/05/17 20:39 Dose: 10 ml - Labs Labs: 06/05/17 05:25 06/05/17 05:25 - Constitutional Appears: No Acute Distress - Head Exam Head Exam: NORMAL INSPECTION, NORMOCEPHALIC - Eye Exam Eye Exam: EOMI, Normal appearance Pupil Exam: NORMAL ACCOMODATION - ENT Exam ENT Exam: Mucous Membranes Moist, Normal External Ear Exam - Neck Exam Neck Exam: Full ROM. absent: Meningismus - Respiratory Exam Respiratory Exam: NORMAL BREATHING PATTERN. absent: Respiratory Distress - Cardiovascular Exam Cardiovascular Exam: REGULAR RHYTHM, +S1, +S2 - GI/Abdominal Exam GI & Abdominal Exam: Soft, Normal Bowel Sounds. absent: Tenderness - Extremities Exam Extremities Exam: Normal Capillary Refill. absent: Calf Tenderness, Pedal Edema - Back Exam Back Exam: absent: CVA tenderness (L), CVA tenderness (R) - Neurological Exam Neurological Exam: Alert, Awake, Oriented x3 Additional comments: left sided weakness - Psychiatric Exam Psychiatric exam: Normal Affect, Normal Mood - Skin Skin Exam: Dry, Normal Color, Warm Assessment and Plan - Assessment and Plan (Free Text) Assessment: 51 yo female with history of HTN and HDL, non-compliant with medications for 6 months, woke up around 1am on 05/24/17 with left sided weakness causing her to fall twice. She went in to [facility] [place] and was found to have acute CVA with MRI showing acute infarct in the right mar radiata and basal ganglia. Admitted in acute rehab , participating with PT 1. Acute CVA continue PT/OT physiatry : Dr Freeman following continue ASA, statin and BP management fall precaution 2. HTN Lisinopril discontinued due to cough continue HCTZ and Nifedipine ER cont Metoprolol 3. Hyperlipidemia cont Atorvastatin 40mg PO HS 4. Coughing sec to JUAN inhibitor resolved after JUAN d/ce 5. DVT prophylaxis continue Lovenox
--- NOTE | 2017-06-06 13:20 | CP.PCM.PN ---
Subjective - Date & Time of Evaluation Date of Evaluation: 06/06/17 Time of Evaluation: 11:00 - Subjective Subjective: no acute complaints feels better Objective - Vital Signs/Intake and Output Vital Signs (last 24 hours): Temp Pulse Resp BP Pulse Ox 98.1 F 86 20 142/86 99 06/06/17 09:04 06/06/17 09:04 06/06/17 09:04 06/06/17 09:04 06/06/17 09:04 - Medications Medications: Current Medications Acetylcysteine (Acetylcysteine 20%) 2 ml INH RBID [facility] Last Admin: 06/06/17 08:51 Dose: 2 ml Albuterol/Ipratropium (Duoneb 3 Mg/0.5 Mg (3 Ml) Ud) 3 ml INH RBID PRN PRN Reason: Shortness of Breath Last Admin: 06/06/17 08:51 Dose: 3 ml Aspirin (Ecotrin) 81 mg PO DAILY [facility] Last Admin: 06/06/17 08:07 Dose: 81 mg Atorvastatin Calcium (Lipitor) 40 mg PO DAILY@2100 [facility] Last Admin: 06/05/17 20:34 Dose: 40 mg Benzonatate (Tessalon Perles) 200 mg PO TID PRN PRN Reason: Cough Last Admin: 06/03/17 20:08 Dose: 200 mg Cholecalciferol (Vitamin D) 1,000 intlu PO DAILY [facility] Last Admin: 06/06/17 08:09 Dose: 1,000 intlu Docusate Sodium (Colace) 100 mg PO BID [facility] Last Admin: 06/06/17 08:08 Dose: 100 mg Enoxaparin Sodium (Lovenox) 40 mg SC DAILY [facility] PRN Reason: Protocol Last Admin: 06/06/17 08:07 Dose: 40 mg Hydrochlorothiazide (Microzide) 12.5 mg PO DAILY [facility] Last Admin: 06/06/17 08:09 Dose: 12.5 mg Loratadine (Claritin) 10 mg PO DAILY PRN PRN Reason: Allergy symptoms Last Admin: 06/04/17 08:41 Dose: 10 mg Metoprolol Tartrate (Lopressor) 12.5 mg PO Q12 [facility] Last Admin: 06/06/17 08:07 Dose: 12.5 mg Nifedipine (Procardia Xl) 60 mg PO DAILY [facility] Last Admin: 06/06/17 08:09 Dose: 60 mg Pantoprazole Sodium (Protonix Ec Tab) 40 mg PO DAILY [facility] Last Admin: 06/06/17 08:08 Dose: 40 mg Promethazine HCl/Codeine (Phenergan/Codeine Oral Syrup) 10 ml PO Q6 PRN PRN Reason: Cough Last Admin: 06/05/17 20:39 Dose: 10 ml - Labs Labs: 06/05/17 05:25 06/05/17 05:25 - Head Exam Head Exam: ATRAUMATIC, NORMAL INSPECTION, NORMOCEPHALIC - Eye Exam Eye Exam: EOMI, Normal appearance, PERRL Pupil Exam: NORMAL ACCOMODATION - ENT Exam ENT Exam: Mucous Membranes Moist, Normal Exam - Neck Exam Neck Exam: Normal Inspection - Respiratory Exam Respiratory Exam: NORMAL BREATHING PATTERN - Cardiovascular Exam Cardiovascular Exam: REGULAR RHYTHM - GI/Abdominal Exam GI & Abdominal Exam: Soft, Normal Bowel Sounds - Rectal Exam Rectal Exam: NORMAL INSPECTION - Exam External exam: NORMAL EXTERNAL EXAM - Extremities Exam Extremities Exam: Full ROM, Normal Capillary Refill, Normal Inspection - Back Exam Back Exam: NORMAL INSPECTION - Neurological Exam Neurological Exam: Alert, Awake Neuro motor strength exam: Left Upper Extremity: 3, Right Upper Extremity: 4, Left Lower Extremity: 3, Right Lower Extremity: 4 - Psychiatric Exam Psychiatric exam: Normal Affect, Normal Mood - Skin Skin Exam: Dry, Normal Color Assessment and Plan (1) CVA (cerebral vascular accident) Assessment & Plan: plan for phjysical, occupational , rec therapy feels better from th ecouhg and congetsion nebulizer treatment Status: Acute
[2017-06-06] MEDS: Promethazine/Cod 6.25mg-10mg/5ml Syr UD PO PRN (20:13)
[2017-06-07] MEDS: Acetylcysteine 20% Inhal Soln (4ml) INH SCH ×2 (07:30→19:00)
[2017-06-07] MEDS: Albuterol-Ipratrop 3 mg / 0.5 (3 ml) UD INH PRN ×2 (07:30→19:00)
[2017-06-07] MEDS: Pantoprazole 40 mg EC Tab PO SCH (08:15)
[2017-06-07] MEDS: Enoxaparin 40 mg Syringe SC SCH (08:16)
[2017-06-07] MEDS: NIFEdipine 60 mg ER Tab PO SCH (08:17)
[2017-06-07] MEDS: Cholecalciferol 1,000 INTLU TAB PO SCH (08:17)
[2017-06-07] MEDS: Promethazine/Cod 6.25mg-10mg/5ml Syr UD PO PRN (20:20)
[2017-06-08] MEDS: Albuterol-Ipratrop 3 mg / 0.5 (3 ml) UD INH PRN ×2 (07:39→19:10)
[2017-06-08] MEDS: Acetylcysteine 20% Inhal Soln (4ml) INH SCH ×2 (07:40→19:10)
[2017-06-08 08:35] LABS: HEMOGLOBIN 12.9 g/dL (12.0-16.0); MEAN CORPUSCULAR HEMOGLOBIN 27.1 pg (27.0-31.0); MEAN CORPUSCULAR HGB CONC 33.4 g/dL (33.0-37.0); RBC 4.76 Mil/uL (3.80-5.20); RED CELL DISTRIBUTION WIDTH 15.9 % (11.5-14.5); WHITE BLOOD COUNT 4.3 K/uL (4.8-10.8)
[2017-06-08 08:49] LABS: BLOOD UREA NITROGEN 16 mg/dl (7-17); CALCIUM 9.2 mg/dL (8.4-10.2); GFR AFRICAN-AMERICAN > 60; GFR NON-AFRICAN AMERICAN > 60
[2017-06-08] MEDS: Enoxaparin 40 mg Syringe SC SCH ×2 (09:46→14:10)
[2017-06-08] MEDS: Pantoprazole 40 mg EC Tab PO SCH (09:47)
[2017-06-08] MEDS: Cholecalciferol 1,000 INTLU TAB PO SCH (09:47)
[2017-06-08] MEDS: NIFEdipine 60 mg ER Tab PO SCH (09:47)
[2017-06-08] MEDS: Promethazine/Cod 6.25mg-10mg/5ml Syr UD PO PRN (20:53)
[2017-06-09] MEDS: Albuterol-Ipratrop 3 mg / 0.5 (3 ml) UD INH PRN ×2 (07:41→19:10)
[2017-06-09] MEDS: Acetylcysteine 20% Inhal Soln (4ml) INH SCH ×2 (07:42→19:10)
[2017-06-09] MEDS: NIFEdipine 60 mg ER Tab PO SCH (08:40)
[2017-06-09] MEDS: Enoxaparin 40 mg Syringe SC SCH (08:40)
[2017-06-09] MEDS: Cholecalciferol 1,000 INTLU TAB PO SCH (08:41)
[2017-06-09] MEDS: Pantoprazole 40 mg EC Tab PO SCH (08:41)
[2017-06-09] MEDS: Promethazine/Cod 6.25mg-10mg/5ml Syr UD PO PRN (20:03)
--- NOTE | 2017-06-09 20:56 | CP.PCM.PN ---
Subjective - Date & Time of Evaluation Date of Evaluation: 06/09/17 Time of Evaluation: 13:40 - Subjective Subjective: Patient seen and examined. Denied any complaint. Objective - Vital Signs/Intake and Output Vital Signs (last 24 hours): Temp Pulse Resp BP Pulse Ox 96.8 F L 75 20 150/92 H 96 06/09/17 20:09 06/09/17 20:09 06/09/17 20:09 06/09/17 20:09 06/09/17 20:09 - Medications Medications: Current Medications Acetylcysteine (Acetylcysteine 20%) 2 ml INH RBID [facility] Last Admin: 06/09/17 07:42 Dose: Not Given Albuterol/Ipratropium (Duoneb 3 Mg/0.5 Mg (3 Ml) Ud) 3 ml INH RBID PRN PRN Reason: Shortness of Breath Last Admin: 06/09/17 19:10 Dose: 3 ml Aspirin (Ecotrin) 81 mg PO DAILY [facility] Last Admin: 06/09/17 08:39 Dose: 81 mg Atorvastatin Calcium (Lipitor) 40 mg PO DAILY@2100 [facility] Last Admin: 06/09/17 20:03 Dose: 40 mg Benzonatate (Tessalon Perles) 200 mg PO TID PRN PRN Reason: Cough Last Admin: 06/03/17 20:08 Dose: 200 mg Cholecalciferol (Vitamin D) 1,000 intlu PO DAILY [facility] Last Admin: 06/09/17 08:41 Dose: 1,000 intlu Docusate Sodium (Colace) 100 mg PO BID [facility] Last Admin: 06/09/17 17:06 Dose: 100 mg Enoxaparin Sodium (Lovenox) 40 mg SC DAILY [facility] PRN Reason: Protocol Last Admin: 06/09/17 08:40 Dose: 40 mg Hydrochlorothiazide (Microzide) 12.5 mg PO DAILY [facility] Last Admin: 06/09/17 08:40 Dose: 12.5 mg Loratadine (Claritin) 10 mg PO DAILY PRN PRN Reason: Allergy symptoms Last Admin: 06/04/17 08:41 Dose: 10 mg Metoprolol Tartrate (Lopressor) 12.5 mg PO Q12 [facility] Last Admin: 06/09/17 20:03 Dose: 12.5 mg Nifedipine (Procardia Xl) 60 mg PO DAILY [facility] Last Admin: 06/09/17 08:40 Dose: 60 mg Pantoprazole Sodium (Protonix Ec Tab) 40 mg PO DAILY [facility] Last Admin: 06/09/17 08:41 Dose: 40 mg Promethazine HCl/Codeine (Phenergan/Codeine Oral Syrup) 10 ml PO Q6 PRN PRN Reason: Cough Last Admin: 06/09/17 20:03 Dose: 10 ml - Labs Labs: 06/08/17 08:00 06/08/17 08:00 - Constitutional Appears: No Acute Distress - Head Exam Head Exam: ATRAUMATIC - Eye Exam Eye Exam: absent: Scleral icterus - ENT Exam ENT Exam: Mucous Membranes Moist - Neck Exam Neck Exam: absent: Meningismus - Respiratory Exam Respiratory Exam: absent: Rhonchi, Wheezes, Respiratory Distress - Cardiovascular Exam Cardiovascular Exam: REGULAR RHYTHM, +S1, +S2 - GI/Abdominal Exam GI & Abdominal Exam: Soft. absent: Tenderness - Rectal Exam Rectal Exam: Deferred - Neurological Exam Neurological Exam: Alert, Oriented x3 - Psychiatric Exam Psychiatric exam: Normal Affect - Skin Skin Exam: Dry, Intact Assessment and Plan - Assessment and Plan (Free Text) Assessment: 51 yo female with history of HTN and HDL, non-compliant with medications for 6 months, woke up around 1am on 05/24/17 with left sided weakness causing her to fall twice. She went in [place] [facility] [place] and was found to have acute CVA with MRI showing acute infarct in the right mar radiata and basal ganglia. 1. Acute CVA continue ASA, statin and BP management continue PT/OT 2. HTN BP stable continue HCTZ, Nifedipine ER and Metoprolol 3. HLD Atorvastatin 40mg PO HS 4. DVT prophylaxis continue Lovenox
[2017-06-10] MEDS: Acetylcysteine 20% Inhal Soln (4ml) INH SCH ×2 (08:16→20:35)
[2017-06-10] MEDS: Enoxaparin 40 mg Syringe SC SCH (08:39)
[2017-06-10] MEDS: Pantoprazole 40 mg EC Tab PO SCH (08:40)
[2017-06-10] MEDS: Cholecalciferol 1,000 INTLU TAB PO SCH (08:40)
[2017-06-10] MEDS: NIFEdipine 60 mg ER Tab PO SCH (08:40)
[2017-06-10] MEDS: Albuterol-Ipratrop 3 mg / 0.5 (3 ml) UD INH PRN ×2 (12:05→19:50)
--- NOTE | 2017-06-10 13:12 | CP.PCM.PN ---
Subjective - Date & Time of Evaluation Date of Evaluation: 06/08/17 Time of Evaluation: 16:00 - Subjective Subjective: no acute compliants at present Objective - Vital Signs/Intake and Output Vital Signs (last 24 hours): Temp Pulse Resp BP Pulse Ox 97.7 F 84 21 167/94 H 97 06/10/17 08:30 06/10/17 08:40 06/10/17 08:30 06/10/17 08:40 06/10/17 08:30 - Medications Medications: Current Medications Acetylcysteine (Acetylcysteine 20%) 2 ml INH RBID [facility] Last Admin: 06/10/17 08:16 Dose: Not Given Albuterol/Ipratropium (Duoneb 3 Mg/0.5 Mg (3 Ml) Ud) 3 ml INH RBID PRN PRN Reason: Shortness of Breath Last Admin: 06/10/17 12:05 Dose: 3 ml Aspirin (Ecotrin) 81 mg PO DAILY [facility] Last Admin: 06/10/17 08:38 Dose: 81 mg Atorvastatin Calcium (Lipitor) 40 mg PO DAILY@2100 [facility] Last Admin: 06/09/17 20:03 Dose: 40 mg Benzonatate (Tessalon Perles) 200 mg PO TID PRN PRN Reason: Cough Last Admin: 06/03/17 20:08 Dose: 200 mg Cholecalciferol (Vitamin D) 1,000 intlu PO DAILY [facility] Last Admin: 06/10/17 08:40 Dose: 1,000 intlu Docusate Sodium (Colace) 100 mg PO BID [facility] Last Admin: 06/10/17 08:33 Dose: 100 mg Enoxaparin Sodium (Lovenox) 40 mg SC DAILY [facility] PRN Reason: Protocol Last Admin: 06/10/17 08:39 Dose: 40 mg Hydrochlorothiazide (Microzide) 12.5 mg PO DAILY [facility] Last Admin: 06/10/17 08:40 Dose: 12.5 mg Loratadine (Claritin) 10 mg PO DAILY PRN PRN Reason: Allergy symptoms Last Admin: 06/04/17 08:41 Dose: 10 mg Metoprolol Tartrate (Lopressor) 12.5 mg PO Q12 [facility] Last Admin: 06/10/17 08:39 Dose: 12.5 mg Nifedipine (Procardia Xl) 60 mg PO DAILY [facility] Last Admin: 06/10/17 08:40 Dose: 60 mg Pantoprazole Sodium (Protonix Ec Tab) 40 mg PO DAILY [facility] Last Admin: 06/10/17 08:40 Dose: 40 mg Promethazine HCl/Codeine (Phenergan/Codeine Oral Syrup) 10 ml PO Q6 PRN PRN Reason: Cough Last Admin: 06/09/17 20:03 Dose: 10 ml - Labs Labs: 06/08/17 08:00 06/08/17 08:00 - Head Exam Head Exam: ATRAUMATIC, NORMAL INSPECTION, NORMOCEPHALIC - Eye Exam Eye Exam: EOMI, Normal appearance, PERRL Pupil Exam: NORMAL ACCOMODATION - ENT Exam ENT Exam: Mucous Membranes Moist, Normal Exam - Neck Exam Neck Exam: Normal Inspection - Respiratory Exam Respiratory Exam: NORMAL BREATHING PATTERN - Cardiovascular Exam Cardiovascular Exam: REGULAR RHYTHM - GI/Abdominal Exam GI & Abdominal Exam: Soft, Normal Bowel Sounds - Rectal Exam Rectal Exam: NORMAL INSPECTION - Exam External exam: NORMAL EXTERNAL EXAM - Extremities Exam Extremities Exam: Full ROM, Normal Capillary Refill - Back Exam Back Exam: NORMAL INSPECTION - Neurological Exam Neurological Exam: Alert, Awake Neuro motor strength exam: Left Upper Extremity: 3, Right Upper Extremity: 4, Left Lower Extremity: 3, Right Lower Extremity: 4 - Psychiatric Exam Psychiatric exam: Normal Affect, Normal Mood - Skin Skin Exam: Dry, Intact Assessment and Plan (1) CVA (cerebral vascular accident) Assessment & Plan: plan for range of , transfers and gait equipment eval dc planning Status: Acute
--- NOTE | 2017-06-10 13:14 | CP.PCM.PN ---
Subjective - Date & Time of Evaluation Date of Evaluation: 06/10/17 Time of Evaluation: 13:00 - Subjective Subjective: less complaints of nose or chest congestion, Objective - Vital Signs/Intake and Output Vital Signs (last 24 hours): Temp Pulse Resp BP Pulse Ox 97.7 F 84 21 167/94 H 97 06/10/17 08:30 06/10/17 08:40 06/10/17 08:30 06/10/17 08:40 06/10/17 08:30 - Medications Medications: Current Medications Acetylcysteine (Acetylcysteine 20%) 2 ml INH RBID [facility] Last Admin: 06/10/17 08:16 Dose: Not Given Albuterol/Ipratropium (Duoneb 3 Mg/0.5 Mg (3 Ml) Ud) 3 ml INH RBID PRN PRN Reason: Shortness of Breath Last Admin: 06/10/17 12:05 Dose: 3 ml Aspirin (Ecotrin) 81 mg PO DAILY [facility] Last Admin: 06/10/17 08:38 Dose: 81 mg Atorvastatin Calcium (Lipitor) 40 mg PO DAILY@2100 [facility] Last Admin: 06/09/17 20:03 Dose: 40 mg Benzonatate (Tessalon Perles) 200 mg PO TID PRN PRN Reason: Cough Last Admin: 06/03/17 20:08 Dose: 200 mg Cholecalciferol (Vitamin D) 1,000 intlu PO DAILY [facility] Last Admin: 06/10/17 08:40 Dose: 1,000 intlu Docusate Sodium (Colace) 100 mg PO BID [facility] Last Admin: 06/10/17 08:33 Dose: 100 mg Enoxaparin Sodium (Lovenox) 40 mg SC DAILY [facility] PRN Reason: Protocol Last Admin: 06/10/17 08:39 Dose: 40 mg Hydrochlorothiazide (Microzide) 12.5 mg PO DAILY [facility] Last Admin: 06/10/17 08:40 Dose: 12.5 mg Loratadine (Claritin) 10 mg PO DAILY PRN PRN Reason: Allergy symptoms Last Admin: 06/04/17 08:41 Dose: 10 mg Metoprolol Tartrate (Lopressor) 12.5 mg PO Q12 [facility] Last Admin: 06/10/17 08:39 Dose: 12.5 mg Nifedipine (Procardia Xl) 60 mg PO DAILY [facility] Last Admin: 06/10/17 08:40 Dose: 60 mg Pantoprazole Sodium (Protonix Ec Tab) 40 mg PO DAILY [facility] Last Admin: 06/10/17 08:40 Dose: 40 mg Promethazine HCl/Codeine (Phenergan/Codeine Oral Syrup) 10 ml PO Q6 PRN PRN Reason: Cough Last Admin: 06/09/17 20:03 Dose: 10 ml - Labs Labs: 06/08/17 08:00 06/08/17 08:00 - Head Exam Head Exam: ATRAUMATIC, NORMAL INSPECTION, NORMOCEPHALIC - Eye Exam Eye Exam: EOMI, Normal appearance, PERRL Pupil Exam: NORMAL ACCOMODATION - ENT Exam ENT Exam: Mucous Membranes Moist, Normal Exam - Neck Exam Neck Exam: Full ROM, Normal Inspection - Respiratory Exam Respiratory Exam: NORMAL BREATHING PATTERN - Cardiovascular Exam Cardiovascular Exam: REGULAR RHYTHM - GI/Abdominal Exam GI & Abdominal Exam: Soft, Normal Bowel Sounds - Rectal Exam Rectal Exam: NORMAL INSPECTION - Exam External exam: NORMAL EXTERNAL EXAM - Extremities Exam Extremities Exam: Full ROM, Normal Capillary Refill - Back Exam Back Exam: NORMAL INSPECTION - Neurological Exam Neurological Exam: Alert, Awake Neuro motor strength exam: Left Upper Extremity: 3, Right Upper Extremity: 4, Left Lower Extremity: 3, Right Lower Extremity: 4 - Psychiatric Exam Psychiatric exam: Normal Affect, Normal Mood - Skin Skin Exam: Dry, Intact Assessment and Plan (1) CVA (cerebral vascular accident) Assessment & Plan: planning for Dc, continue with physical, occupational and rec therapy Status: Acute
[2017-06-10] MEDS: Promethazine/Cod 6.25mg-10mg/5ml Syr UD PO PRN (21:42)
[2017-06-11] MEDS: Acetylcysteine 20% Inhal Soln (4ml) INH SCH ×2 (08:10→20:02)
[2017-06-11] MEDS: Albuterol-Ipratrop 3 mg / 0.5 (3 ml) UD INH PRN ×2 (08:10→20:02)
[2017-06-11] MEDS: Enoxaparin 40 mg Syringe SC SCH (08:42)
[2017-06-11] MEDS: Pantoprazole 40 mg EC Tab PO SCH (08:43)
[2017-06-11] MEDS: Cholecalciferol 1,000 INTLU TAB PO SCH (08:43)
[2017-06-11] MEDS: NIFEdipine 60 mg ER Tab PO SCH (08:43)
[2017-06-11 11:04] LABS: BLOOD UREA NITROGEN 15 mg/dl (7-17); CALCIUM 9.7 mg/dL (8.4-10.2); GFR AFRICAN-AMERICAN > 60; GFR NON-AFRICAN AMERICAN > 60
--- NOTE | 2017-06-11 11:08 | CP.PCM.PN ---
Subjective - Date & Time of Evaluation Date of Evaluation: 06/11/17 Time of Evaluation: 11:45 - Subjective Subjective: Pt doing well Plan for d/c in am Prescriptions written and sent down to Pharmacy Cough resolved occ post nasal drip no CP no SOB no abd pain Objective - Vital Signs/Intake and Output Vital Signs (last 24 hours): Temp Pulse Resp BP Pulse Ox 97.2 F L 92 H 20 152/76 H 98 06/11/17 09:10 06/11/17 09:10 06/11/17 09:10 06/11/17 09:10 06/11/17 09:10 - Medications Medications: Current Medications Acetylcysteine (Acetylcysteine 20%) 2 ml INH RBID [facility] Last Admin: 06/11/17 08:10 Dose: 2 ml Albuterol/Ipratropium (Duoneb 3 Mg/0.5 Mg (3 Ml) Ud) 3 ml INH RBID PRN PRN Reason: Shortness of Breath Last Admin: 06/11/17 08:10 Dose: 3 ml Aspirin (Ecotrin) 81 mg PO DAILY [facility] Last Admin: 06/11/17 08:43 Dose: 81 mg Atorvastatin Calcium (Lipitor) 40 mg PO DAILY@2100 [facility] Last Admin: 06/10/17 20:40 Dose: 40 mg Benzonatate (Tessalon Perles) 200 mg PO TID PRN PRN Reason: Cough Last Admin: 06/03/17 20:08 Dose: 200 mg Cholecalciferol (Vitamin D) 1,000 intlu PO DAILY [facility] Last Admin: 06/11/17 08:43 Dose: 1,000 intlu Docusate Sodium (Colace) 100 mg PO BID [facility] Last Admin: 06/11/17 08:43 Dose: 100 mg Enoxaparin Sodium (Lovenox) 40 mg SC DAILY [facility] PRN Reason: Protocol Last Admin: 06/11/17 08:42 Dose: 40 mg Hydrochlorothiazide (Microzide) 12.5 mg PO DAILY [facility] Last Admin: 06/11/17 08:43 Dose: 12.5 mg Loratadine (Claritin) 10 mg PO DAILY PRN PRN Reason: Allergy symptoms Last Admin: 06/04/17 08:41 Dose: 10 mg Metoprolol Tartrate (Lopressor) 25 mg PO Q12 [facility] Nifedipine (Procardia Xl) 60 mg PO DAILY [facility] Last Admin: 06/11/17 08:43 Dose: 60 mg Pantoprazole Sodium (Protonix Ec Tab) 40 mg PO DAILY [facility] Last Admin: 06/11/17 08:43 Dose: 40 mg Promethazine HCl/Codeine (Phenergan/Codeine Oral Syrup) 10 ml PO Q6 PRN PRN Reason: Cough Last Admin: 06/10/17 21:42 Dose: 10 ml - Labs Labs: 06/08/17 08:00 06/11/17 10:35 - Constitutional Appears: No Acute Distress - Head Exam Head Exam: NORMAL INSPECTION, NORMOCEPHALIC - Eye Exam Eye Exam: EOMI, Normal appearance Pupil Exam: NORMAL ACCOMODATION - ENT Exam ENT Exam: Mucous Membranes Moist, Normal External Ear Exam - Neck Exam Neck Exam: Full ROM. absent: Meningismus - Respiratory Exam Respiratory Exam: NORMAL BREATHING PATTERN. absent: Respiratory Distress - Cardiovascular Exam Cardiovascular Exam: REGULAR RHYTHM, +S1, +S2 - GI/Abdominal Exam GI & Abdominal Exam: Soft, Normal Bowel Sounds. absent: Tenderness - Extremities Exam Extremities Exam: Normal Capillary Refill. absent: Calf Tenderness, Pedal Edema - Back Exam Back Exam: absent: CVA tenderness (L), CVA tenderness (R) - Neurological Exam Neurological Exam: Alert, Awake, Oriented x3 Additional comments: left sided weakness - Psychiatric Exam Psychiatric exam: Normal Affect, Normal Mood - Skin Skin Exam: Dry, Normal Color, Warm Assessment and Plan - Assessment and Plan (Free Text) Assessment: 51 yo female with history of HTN and HDL, non-compliant with medications for 6 months, woke up around 1am on 05/24/17 with left sided weakness causing her to fall twice. [place] [facility] [place] found to have acute CVA with MRI showing acute infarct in the right mar radiata and basal ganglia. Admitted to [facility] for PT/OT/Speech tx. Pt has been doing well with PT. Plan for discharge tomorrow 1. Acute CVA continue PT/OT/Speech tx physiatry : Dr Freeman following pt continue ASA, statin and BP management fall precaution Plan for d/c home in am 2. HTN uncontrolled Lisinopril discontinued due to cough continue HCTZ and Nifedipine ER cont Metoprolol - increase dose to 25 mg bid 3. Hyperlipidemia cont Atorvastatin 40mg PO HS 4. Coughing sec to [facility] inhibitor resolved after JUAN d/c 5. DVT prophylaxis continue Lovenox
--- NOTE | 2017-06-11 12:17 | PSY.TMCNF ---
Nursing - Vital Signs Vital Signs (Last 8 hours): Vital Signs 06/11/17 06/11/17 06/11/17 08:42 08:43 09:00 Temperature 97.2 F L Pulse Rate 78 78 92 H Respiratory 20 Rate Blood Pressure 152/76 H 152/76 H 152/76 H O2 Sat by Pulse Oximetry 06/11/17 09:10 Temperature 97.2 F L Pulse Rate 92 H Respiratory 20 Rate Blood Pressure 152/76 H O2 Sat by Pulse 98 Oximetry Pain: 0 - Precautions: Precautions: Fall Prevention - Medications/Other Issues Comment: Safety - Consults Comment: Dr. Freeman - Toileting Toileting: Supervision - Bladder Management Bladder Pattern: Normal Voiding Method: Toilet Bladder Management: Supervision Frequency of Accidents: 0 - Bowel Management Bowel Pattern: Normal Bowel Management: Supervision - Transfers Transfers: Contact Guard - ADL's ADL's: Supervision - Pain Management Comments: Denies pain - Patient/Family Teaching Comments: Post CVA care, safety - Goals/Time Frame Comments: Per interdisciplinary team. Physical Therapy - Bed Mobility Bed Mobility: Modified Independent - Transfers Wheelchair to Mat: Modified Independent Sit to Stand: Modified Independent Comment: SPC - Ambulation Level of Assistance: Modified Independent, Supervision Distance (ft.): 200 Assistive Devices: Single point cane Comment: 200 feet with SPC with distant supervision progressing to mod I. - continued improving endurance with increased distances before standing rest breaks. -continued education and cues to ensure proper mechanics prior to progressing to no device. -pt asking to ambulate with weighted cuff on LLE for strengthening; educated that this is not safe as she should ensure return to PLOF with gait prior to strengthening as well as be cautious not to trip on cuff weight if it were to fall off - Stair Negotiation Stairs: Level of Assistance: Supervision, Verbal Cues Stairs: Assistive Devices: Left Handrail, Right Handrail Comment: 1 flight 8 inch steps. -first flight with R rail/ carrying SPC on L with step to pattern on ascent and L rail and SPC on R for descent with mod I. -2nd flight with reciprocal pattern with CS; some reduced eccentric control as noted in the quadriceps on descent - Standing Balance Static Stand: Modified [place] with assistive device Dynamic Stand: Supervision - Pain Pain (assessed during therapy session): 0 Comment: pt denies pain - Insight/Carryover Insight/Carryover: Good - Patient/Family Education Comment: Patient demoes excellent carryover with transfer techniques. - Assessment/Plan Assessment: Ms. Mccallum is highly motivated and participates OT sessions. She is progressing towards her goal and is on track to meet her [place] [facility] goals . Initially - pt presented with L UE/LE weakness particularly in shoulder, wrist/ worsted winder strength as well as unsteadiness on feet, lack of coordination, decreased activity tolerance presenting with shortness of breath during activity. She benefits from the use of AE with LB dressing to conserve energy during ADL routine. Continued CVA and energy conservation strategies were implemented t/o sessions. Pt is now able to perform transfers, mobility and lb self care with mod I Reccommend assist from sister with iadls such as cleaning and cooking as well as supervsion while in the community. Pt is to be d/norma home with her sister 06/12/17. Offered caregiver training to pts sister-caregiver refusal documented. [ End ] - Goals Goals: mod I transfers, mobility, self care. improve act tolerance to 20 mins - Provider Therapist: Denise Carter PT, DPT License Number: [id number] Occupational Therapy - Arousal/Attention/Orientation Patient Orientation: Person, Place, Time, Appropriate to Age, Appropriate to Situation - ADL/IADL Self Feeding: Independent Grooming: Independent Bathing-Upper Extremity: Set-up Help Bathing-Lower Extremity: Set-up Help Dressing-Upper Extremity: Independent Dressing-Lower Extremity: Independent Homemaking: Supervision - Sitting Balance Static Sitting: Independent without upper extremity support - Transfers Wheelchair to Bed Transfers: Modified Independent Toilet Transfers: Modified Independent Tub Transfers: Supervision - Wheelchair Management Level of Assistance: Not Applicable - Upper Extremity Status Right Upper Extremity Comment: WFL Left Upper Extremity Comment: WFL - Pain Pain (assessed during therapy session): 0 Comment: pt denies pain - Insight/Carryover Insight/Carryover: Good - Patient/Family Education Comment: Patient demoes excellent carryover with transfer techniques. - Assessment/Plan Assessment: Ms. Mccallum is highly motivated and participates OT sessions. 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 Initially - pt presented with L UE/LE weakness particularly in shoulder, wrist/ worsted winder strength as well as unsteadiness on feet, lack of coordination, decreased activity tolerance presenting with shortness of breath during activity. She benefits from the use of AE with LB dressing to conserve energy during ADL routine. Continued CVA and energy conservation strategies were implemented t/o sessions. Pt is now able to perform transfers, mobility and lb self care with mod I Reccommend assist from sister with iadls such as cleaning and cooking as well as supervsion while in the community. Pt is to be d/norma home with her sister 06/12/17. Offered caregiver training to pts sister-caregiver refusal documented. [ End ] - Goals Goals: mod I transfers, mobility, self care. improve act tolerance to 20 mins - Provider Therapist: NICOLE oMran/Russell License Number: [id number] Speech Therapy - Plan Assessment: Ms. Mccallum is highly motivated and participates OT sessions. 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 Initially - pt presented with L UE/LE weakness particularly in shoulder, wrist/ worsted winder strength as well as unsteadiness on feet, lack of coordination, decreased activity tolerance presenting with shortness of breath during activity. She benefits from the use of AE with LB dressing to conserve energy during ADL routine. Continued CVA and energy conservation strategies were implemented t/o sessions. Pt is now able to perform transfers, mobility and lb self care with mod I Reccommend assist from sister with iadls such as cleaning and cooking as well as supervsion while in the community. Pt is to be d/norma home with her sister 06/12/17. Offered caregiver training to pts sister-caregiver refusal documented. [ End ] Recreational Therapy - Participation Participation: Participates in Individual and/or Group Sessions - Attendance Attendance: 3-5 times per week - Activities Leisure Activities: Cards and Games - Socialization Level of Socialization: Initiates/interacts freely with care givers and peer - Diversional Time Diversional Time: provided with jigsaw puzzle, word searches, likes rummikub - Assessment Assessment/Plan: Ms. Mccallum is highly motivated and participates OT sessions. She is progressing towards her goal and is on track to meet her [place] [facility] goals . Initially - pt presented with L UE/LE weakness particularly in shoulder, wrist/worsted winder strength as well as unsteadiness on feet, lack of coordination, decreased activity tolerance presenting with shortness of breath during activity. She benefits from the use of AE with LB dressing to conserve energy during ADL routine. Continued CVA and energy conservation strategies were implemented t/o sessions. Pt is now able to perform transfers, mobility and lb self care with mod I Reccommend assist from sister with iadls such as cleaning and cooking as well as supervsion while in the community. Pt is to be d/norma home with her sister 06/12/17. Offered caregiver training to pts sister-caregiver refusal documented. [ End ] - Provider Therapist: Nicol Clark, WHITING MACHINE OPERATOR #[id number] Nutrition - Current Diet Current Diet/ Supplement/ Feedings: 2 gram Na low fat/low cholesterol - Appetite Percent Meal Consumed: 75-100% - Comments Comments: Post CVA care, safety - Assessment/Goals/Time Frame Assessment/Goals/Time Frame: Safety - Provider Provider: Jessenia Eric RD Case Management - Psychosocial Assessment Support Systems: Satish Gray (spouse)- [phone]. Indira Mccallum ( sibling)- [phone] Psychological Interventions/Needs: Patient is alert and oriented x3 and able to verbalize needs. Patient is cooperative and motivated for therapy Discharge Concerns: Patient continues to demonstrate L sided weakness Patient/Family Meeting: CM met with patient and rehab team Intervention/Goal/Outcome:: 1. Goal: Intermittent supervision/Mod I overall. 2. Plan: Home with VNS- CM to refer to [facility]. 3. DME needs- hip kit, shower chair. 4. f/u appts. 5. caregiver training. - Discharge Plan Discharge Plan: Home with services Home Services: [facility] - Provider Provider: MONTSERRAT Koenig, SHORT FILLER BUNCH MACHINE OPERATOR License Number: [id number] Rehabilitation Plan - Treatment Plan Treatment Plan: Physical Therapy, Occupational Therapy, Dietary, Patient/Family Education - Recommendation Recommendation: Physical Therapy, Occupational Therapy, Dietary, Patient/Family Education - Discharge Plan Discharge to: Home (Dc jun 12)
--- NOTE | 2017-06-11 13:00 | CP.PCM.PN ---
Subjective - Date & Time of Evaluation Date of Evaluation: 06/11/17 Time of Evaluation: 09:00 - Subjective Subjective: no acute complaints at present , feeling well Objective - Vital Signs/Intake and Output Vital Signs (last 24 hours): Temp Pulse Resp BP Pulse Ox 97.2 F L 92 H 20 152/76 H 98 06/11/17 09:10 06/11/17 09:10 06/11/17 09:10 06/11/17 09:10 06/11/17 09:10 - Medications Medications: Current Medications Acetylcysteine (Acetylcysteine 20%) 2 ml INH RBID [facility] Last Admin: 06/11/17 08:10 Dose: 2 ml Albuterol/Ipratropium (Duoneb 3 Mg/0.5 Mg (3 Ml) Ud) 3 ml INH RBID PRN PRN Reason: Shortness of Breath Last Admin: 06/11/17 08:10 Dose: 3 ml Aspirin (Ecotrin) 81 mg PO DAILY [facility] Last Admin: 06/11/17 08:43 Dose: 81 mg Atorvastatin Calcium (Lipitor) 40 mg PO DAILY@2100 [facility] Last Admin: 06/10/17 20:40 Dose: 40 mg Benzonatate (Tessalon Perles) 200 mg PO TID PRN PRN Reason: Cough Last Admin: 06/03/17 20:08 Dose: 200 mg Cholecalciferol (Vitamin D) 1,000 intlu PO DAILY [facility] Last Admin: 06/11/17 08:43 Dose: 1,000 intlu Docusate Sodium (Colace) 100 mg PO BID [facility] Last Admin: 06/11/17 08:43 Dose: 100 mg Enoxaparin Sodium (Lovenox) 40 mg SC DAILY [facility] PRN Reason: Protocol Last Admin: 06/11/17 08:42 Dose: 40 mg Hydrochlorothiazide (Microzide) 12.5 mg PO DAILY [facility] Last Admin: 06/11/17 08:43 Dose: 12.5 mg Loratadine (Claritin) 10 mg PO DAILY PRN PRN Reason: Allergy symptoms Last Admin: 06/04/17 08:41 Dose: 10 mg Metoprolol Tartrate (Lopressor) 25 mg PO Q12 [facility] Nifedipine (Procardia Xl) 60 mg PO DAILY [facility] Last Admin: 06/11/17 08:43 Dose: 60 mg Pantoprazole Sodium (Protonix Ec Tab) 40 mg PO DAILY [facility] Last Admin: 06/11/17 08:43 Dose: 40 mg Promethazine HCl/Codeine (Phenergan/Codeine Oral Syrup) 10 ml PO Q6 PRN PRN Reason: Cough Last Admin: 06/10/17 21:42 Dose: 10 ml - Labs Labs: 06/08/17 08:00 06/11/17 10:35 - Head Exam Head Exam: ATRAUMATIC, NORMAL INSPECTION, NORMOCEPHALIC - Eye Exam Eye Exam: EOMI, Normal appearance, PERRL Pupil Exam: NORMAL ACCOMODATION - ENT Exam ENT Exam: Mucous Membranes Moist, Normal Exam - Neck Exam Neck Exam: Full ROM, Normal Inspection - Respiratory Exam Respiratory Exam: NORMAL BREATHING PATTERN - Cardiovascular Exam Cardiovascular Exam: REGULAR RHYTHM - GI/Abdominal Exam GI & Abdominal Exam: Soft, Normal Bowel Sounds - Rectal Exam Rectal Exam: NORMAL INSPECTION - Exam External exam: NORMAL EXTERNAL EXAM - Extremities Exam Extremities Exam: Full ROM, Normal Capillary Refill - Back Exam Back Exam: NORMAL INSPECTION - Neurological Exam Neurological Exam: Alert, Awake Neuro motor strength exam: Left Upper Extremity: 3, Right Upper Extremity: 4, Left Lower Extremity: 3, Right Lower Extremity: 4 - Psychiatric Exam Psychiatric exam: Normal Affect, Normal Mood - Skin Skin Exam: Dry, Intact Assessment and Plan (1) CVA (cerebral vascular accident) Assessment & Plan: plan fo rPt, Ot rec therapy Dc for AM discussed Dc planning with patty equipment Status: Acute
[2017-06-12] MEDS: Albuterol-Ipratrop 3 mg / 0.5 (3 ml) UD INH PRN (07:36)
[2017-06-12] MEDS: Pantoprazole 40 mg EC Tab PO SCH (08:39)
[2017-06-12] MEDS: NIFEdipine 60 mg ER Tab PO SCH (08:40)
[2017-06-12] MEDS: Enoxaparin 40 mg Syringe SC SCH (08:40)
[2017-06-12 08:42] VITALS: BP 165/78; PULSE 76; RESP 22; TEMP 98.5; O2SAT 98
[2017-06-12] MEDS: Cholecalciferol 1,000 INTLU TAB PO SCH (08:42)
--- NOTE | 2017-06-12 11:16 | CP.PCM.DIS ---
Provider - Provider Date of Admission: 05/29/17 17:03 Attending physician: Lonnie Carr MD Consults: Dr Freeman Time Spent in preparation of Discharge (in minutes): 25 Diagnosis - Discharge Diagnosis (1) CVA (cerebral vascular accident) Status: Acute Comment: continue ASA and statin (2) HTN (hypertension) Status: Chronic Comment: BP stable. continue HCTZ, Nifedipine and Metoprolol (3) HLD (hyperlipidemia) Status: Chronic Comment: continue Lipitor Hospital Course - Lab Results Lab Results: Most Recent Lab Values WBC 4.3 K/uL (4.8-10.8) L 06/08/17 08:00 RBC 4.76 Mil/uL (3.80-5.20) 06/08/17 08:00 Hgb 12.9 g/dL (12.0-16.0) 06/08/17 08:00 Hct 38.6 % (34.0-47.0) 06/08/17 08:00 MCV 81.0 fl (81.0-99.0) 06/08/17 08:00 MCH 27.1 pg (27.0-31.0) 06/08/17 08:00 MCHC 33.4 g/dL (33.0-37.0) 06/08/17 08:00 RDW 15.9 % (11.5-14.5) H 06/08/17 08:00 Plt Count 221 K/uL (130-400) 06/08/17 08:00 Sodium 140 mmol/l (132-148) 06/11/17 10:35 Potassium 3.7 MMOL/L (3.6-5.0) 06/11/17 10:35 Chloride 98 mmol/L (98-107) 06/11/17 10:35 Carbon Dioxide 31 mmol/L (22-30) H 06/11/17 10:35 Anion Gap 15 (10-20) 06/11/17 10:35 BUN 15 mg/dl (7-17) 06/11/17 10:35 Creatinine 0.8 mg/dl (0.7-1.2) 06/11/17 10:35 Est GFR ( Amer) > 60 06/11/17 10:35 Est GFR (Non-Af Amer) > 60 06/11/17 10:35 POC Glucose (mg/dL) 106 mg/dL (65-110) 05/31/17 16:29 Random Glucose 107 mg/dL (65-105) H 06/11/17 10:35 Calcium 9.7 mg/dL (8.4-10.2) 06/11/17 10:35 Magnesium 2.0 MG/DL (1.6-2.3) 05/30/17 14:53 Total Bilirubin 0.7 mg/dl (0.2-1.3) 05/30/17 06:15 AST 40 U/L (14-36) H 05/30/17 06:15 ALT 80 U/L (9-52) H 05/30/17 06:15 Alkaline Phosphatase 40 U/L (38-126) 05/30/17 06:15 Total Protein 7.0 G/DL (6.3-8.2) 05/30/17 06:15 Albumin 3.7 g/dL (3.5-5.0) 05/30/17 06:15 Globulin 3.3 gm/dL (2.2-3.9) 05/30/17 06:15 Albumin/Globulin Ratio 1.1 (1.0-2.1) 05/30/17 06:15 25-OH Vitamin D Total 27.2 NG/ML (30.0-100.0) L 05/30/17 14:53 - Hospital Course Hospital Course: 51 yo female with history of HTN and HDL, non-compliant with medications admitted at [facility] on 05/24/2017 because of acute CVA manifested with left leg weakness associated with headache and dizziness. MRI was positive for right mar radiata and basal ganglia infarct. She was trasnferred to [facility] for PT/OT and did well. Discharge Exam - Head Exam Head Exam: ATRAUMATIC, NORMAL INSPECTION, NORMOCEPHALIC - Eye Exam Eye Exam: absent: Scleral icterus - ENT Exam ENT Exam: Mucous Membranes Moist - Respiratory Exam Respiratory Exam: absent: Rhonchi, Wheezes, Respiratory Distress - Cardiovascular Exam Cardiovascular Exam: REGULAR RHYTHM, +S1, +S2 - GI/Abdominal Exam GI & Abdominal Exam: Soft. absent: Tenderness - Rectal Exam Rectal Exam: Deferred - Neurological Exam Neurological exam: Alert, Oriented x3 - Psychiatric Exam Psychiatric exam: Normal Affect - Skin Skin Exam: Dry, Intact Discharge Plan - Discharge Medications Prescriptions: Albuterol/Ipratropium [Duoneb 3 mg/0.5 mg (3 ml) UD] 3 ml INH RBID PRN #50 neb PRN Reason: Shortness Of Breath Atorvastatin [Lipitor] 40 mg PO DAILY@2100 #30 tab Cholecalciferol [Vitamin D 1000 IU] 1,000 intlu PO DAILY #30 tab Docusate [Colace] 100 mg PO BID #60 cap hydroCHLOROthiazide [Microzide] 12.5 mg PO DAILY #30 cap Metoprolol Tartrate [Lopressor] 25 mg PO Q12 #60 tab NIFEdipine [Procardia] 60 mg PO DAILY #30 sgl Promethazine/Codeine [Phenergan/Codeine Oral Syrup] 10 ml PO Q6 PRN #200 ml PRN Reason: Cough - Follow Up Plan Condition: GOOD Disposition: HOME/ ROUTINE Instructions: Metoprolol (By mouth), Nifedipine (By mouth), Hydrochlorothiazide (By mouth), Aspirin (By mouth), Laxative, Stool Softeners ( By mouth), Atorvastatin (By mouth), Ipratropium/Albuterol (By breathing), Acetylcysteine (By breathing), Pantoprazole (By mouth), Promethazine/Codeine ( By mouth), Cholecalciferol (By mouth), Heart Healthy Diet (DC), Stroke (DC)
== END 2017-06-12 12:50 | disposition home health service (06) | DRG 57 ==
PROC: F07Z9FZ Gait Training/Functional Ambulation Treatment using Assistive, Adaptive, Supportive or Protective Equipment (ICD-10-PCS; principal; 2017-05-29)
PROC: F07L6ZZ Therapeutic Exercise Treatment of Musculoskeletal System - Lower Back / Lower Extremity (ICD-10-PCS; 2017-05-29)
DX: I69.354 Hemiplegia and hemiparesis following cerebral infarction affecting left non-dominant side (principal); E78.00 Pure hypercholesterolemia, unspecified; I10 Essential (primary) hypertension; R05 Cough; R09.82 Postnasal drip; T46.4X5A Adverse effect of angiotensin-converting-enzyme inhibitors, initial encounter; Z91.14 Patient's other noncompliance with medication regimen; E78.5 Hyperlipidemia, unspecified; K59.00 Constipation, unspecified